=== PATIENT | male | born 1950 | race Caucasian/White ===

== ENCOUNTER → 2016-11-18 | Outpatient (CLI) | payer MEDICARE | END | disposition home or self-care (01) | LOC: GMAJ 15:37 | PROVIDERS: ATTEND Family Medicine | DX: Z12.5 Encounter for screening for malignant neoplasm of prostate (principal); E03.9 Hypothyroidism, unspecified; Z79.899 Other long term (current) drug therapy | CPT/HCPCS: 80164; 84443; G0103 ==

== ENCOUNTER → 2017-04-24 | Outpatient (CLI) | payer MEDICARE | END | disposition home or self-care (01) | LOC: GMAJ 10:20 | PROVIDERS: ATTEND Family Medicine | DX: Z79.899 Other long term (current) drug therapy (principal) ==

== ENCOUNTER → 2017-10-05 | Outpatient (CLI) | payer MEDICARE | END | disposition home or self-care (01) | LOC: GMAJ 10:52 | PROVIDERS: ATTEND Family Medicine | DX: Z79.899 Other long term (current) drug therapy (principal); E03.9 Hypothyroidism, unspecified ==

== ENCOUNTER → 2017-10-28 | Outpatient (CLI) | payer MEDICARE | LOC: GMAJS 15:39 | PROVIDERS: ATTEND Physician Assistant | DX: R10.84 Generalized abdominal pain (principal) ==

== ENCOUNTER → 2018-01-11 | Outpatient (CLI) | payer MEDICARE | LOC: GMAJ 13:49 | PROVIDERS: ATTEND Family Medicine | DX: E03.9 Hypothyroidism, unspecified (principal) ==

== ENCOUNTER → 2018-02-26 | Outpatient (CLI) | payer MEDICARE | LOC: LAB.O 13:01 | PROVIDERS: ATTEND Psychiatry & Neurology Psychiatry | DX: F31.12 Bipolar disorder, current episode manic without psychotic features, moderate (principal); Z79.899 Other long term (current) drug therapy ==

== ENCOUNTER → 2018-03-16 | Outpatient (CLI) | payer MEDICARE ==
--- NOTE | 2018-03-16 17:49 | US ---
EXAM DESCRIPTION: Carotid Duplex CLINICAL HISTORY: OCCLUSION AND STENOSIS OF BILATERAL CAROTID ARTERIES COMPARISON: None Available. TECHNIQUE: Carotid Doppler ultrasound FINDINGS: Right Submitted images show no significant stenosis in the common carotid, internal carotid or external carotid arteries. Mild calcified plaque at the right carotid bulb. Transverse image shows 41% area narrowing of the right carotid bulb. The following flow velocities were obtained: Common carotid artery peak systolic flow velocity measures 74 centimeters per second. Internal carotid artery peak systolic flow velocity measures 80 centimeters per second. External carotid artery peak systolic flow velocity measures 106 centimeters per second. Flow in the right vertebral artery is antegrade. The right internal carotid to common carotid peak systolic flow velocity ratio equals 1.1 which is normal. Left Submitted images show normal caliber of the left common carotid, internal carotid and external carotid arteries with no significant stenosis. Mild arteriosclerotic plaque is seen in the left carotid bulb. Mildly elevated flow velocity in the proximal left external carotid artery. 24% area stenosis measured at the left carotid bulb. The following flow velocities were obtained: Common carotid artery peak systolic flow velocity measures 94 centimeters per second. Internal carotid artery peak systolic flow velocity measures 100 centimeters per second. External carotid artery peak systolic flow velocity measures 128 centimeters per second. This is mildly elevated and may indicate mild origin stenosis. Flow in the left vertebral artery is antegrade. The left internal carotid to common carotid peak systolic flow velocity ratio of 1.1 is normal. IMPRESSION: Mildly elevated flow velocity in the proximal left external carotid artery. No hemodynamically significant stenosis is identified in the right or left common carotid or internal carotid arteries. Antegrade flow in the vertebral arteries. Electronically signed by: Guy Grewal MD 03/16/2018 5:48 PM CDT
== END ==
LOC: US 14:32
PROVIDERS: ATTEND Family Medicine
DX: I65.23 Occlusion and stenosis of bilateral carotid arteries (principal)

== ENCOUNTER 2018-04-12 03:06 | Emergency (ER) | payer MEDICARE ==
--- NOTE | 2018-04-12 04:22 | CT ---
CT head without contrast on 04/12/2018 CLINICAL INDICATION: Weakness, falling TECHNIQUE: Multiple axial images are obtained throughout the head without the administration of contrast. This exam was performed according to our departmental dose-optimization program, which includes automated exposure control, adjustment of the mA and/or kV according to patient size and/or use of iterative reconstruction technique. Total DLP is 859.97 mGy*cm. COMPARISON: None FINDINGS: There is mild generalized cerebral atrophy. There are small incidental bilateral choroidal fissure cysts noted. There is no hydrocephalus. There is no CT evidence of acute infarct. There is no hemorrhage. There are no abnormal extra-axial fluid collections. There is no mass, mass effect or midline shift. No bony abnormality is noted. IMPRESSION: Atrophy with no acute intracranial abnormality. Electronically signed by: Filemon Castellanos 04/12/2018 4:21 AM CDT
[2018-04-12] MEDS: SODIUM CHLORIDE 0.9% 1000ML 1,000 ML IVS ONE (05:24)
--- NOTE | 2018-04-12 06:22 | RAD ---
EXAM DESCRIPTION: Single view of the chest CLINICAL HISTORY: syncope COMPARISON: 01/06/2012 FINDINGS: Single frontal view of the chest. The cardiomediastinal silhouette has normal size and contour. No consolidation, pneumothorax, or pleural effusion. 0.8 cm nodular opacity in the right lung base. Osseous structures are stable. Leads overlie the chest. Upper abdominal soft tissues are unremarkable. IMPRESSION: 1. No acute pulmonary process identified. 2. There is a 0.8 cm nodular opacity in the right lung. Repeat chest radiograph with nipple markers recommended. If nodule does not represent a nipple shadows then CT of the chest would be recommended. Electronically signed by: Franklin Griffin 04/12/2018 6:21 AM CDT
--- NOTE | 2018-04-12 06:36 | ED.PDOC ---
History of Present Illness - General Chief Complaint: General Stated Complaint: weak and falling often Time Seen by Provider: 04/12/18 04:54 Source: patient, family Exam Limitations: no limitations - History of Present Illness Initial Comments: Patient presents after having 3 falls in the last 3 days. 3 days ago he was camping he fell into the river. Today he fell twice from standing. He did not lose consciousness. He did not experience chest pain, light-headedness, nor dizziness before or after falling. Denies previous episodes. He has not felt ataxic nor lethargic. No weakness or numbness in any extremity. No other complaints. Timing/Duration: intermittent Severity: mild Improving Factors: nothing Worsening Factors: nothing Associated Symptoms: denies symptoms Allergies/Adverse Reactions: Allergies Tetanus Toxoid Allergy (Verified 04/12/18 03:26) Home Medications: Ambulatory Orders Atorvastatin Calcium [Atorvastatin Calcium] 04/12/18 Divalproex Sodium [Divalproex Sodium Dr] 04/12/18 Fenofibrate [Fenofibrate] 04/12/18 Glimepiride 2 mg PO 04/12/18 Levothyroxine Sodium [Synthroid] 04/12/18 Losartan Potassium [Losartan Potassium] 04/12/18 Metformin HCl [Metformin HCl] 04/12/18 Metoprolol Succinate [Metoprolol Succinate ER] 04/12/18 Niacin [Niacin ER] 500 mg PO 04/12/18 [place]-3 Fatty Acids [Fish Oil 1200 mg] 04/12/18 Venlafaxine HCl [Venlafaxine HCl ER] 04/12/18 Review of Systems - Review of Systems Constitutional: States: no symptoms reported EENTM: States: no symptoms reported Respiratory: States: no symptoms reported Cardiology: States: no symptoms reported Gastrointestinal/Abdominal: States: no symptoms reported Genitourinary: States: no symptoms reported Musculoskeletal: States: no symptoms reported Skin: States: no symptoms reported Neurological: States: see HPI Endocrine: States: no symptoms reported Hematologic/Lymphatic: States: no symptoms reported Past Medical History (General) - Patient Medical History Hx Hypertension: Yes Hx Thyroid Disease: Yes Hx Diabetes: Yes - Vaccination History Hx Influenza Vaccination: Yes - Triage Comment ED Triage Comment: States fell into river while fishing Thursday evening, and then fell agian Thursday at home and unable to get up, due to weakness. 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, no motor/sensory deficits, alert, normal mood/affect, oriented x 3 Skin Exam: normal color Lymphatic: no adenopathy Progress - Progress Progress: 04/12/18 06:37 Laboratory Tests 04/12/18 04/12/18 04/12/18 03:45 03:45 03:45 WBC 7.8 RBC 4.25 L Hgb 12.1 L Hct 37.3 L MCV 87.8 MCH 28.4 MCHC 32.4 L RDW 16.0 H Plt Count 229 MPV 9.0 Absolute Neuts (auto) 5.40 Absolute Lymphs (auto) 1.20 Absolute Monos (auto) 1.00 H Absolute Eos (auto) 0.00 Absolute Basos (auto) 0.10 Neutrophils % 69.6 Lymphocytes % 15.4 L Monocytes % 13.5 H Eosinophils % 0.5 L Basophils % 1.0 PT 10.6 INR 1.06 PTT (SP) 25.4 D-Dimer, Quantitative Sodium 137 Potassium 4.7 Chloride 106 Carbon Dioxide 22 Anion Gap 13.7 BUN 24 H Creatinine 0.94 BUN/Creatinine Ratio 25.5 H Random Glucose 108 H Serum Osmolality 278.4 Calcium 9.8 Total Bilirubin 0.5 AST 30 ALT 24 Alkaline Phosphatase 39 L Ammonia Creatine Kinase CK-MB (CK-2) CK-MB (CK-2) % Troponin I Serum Total Protein 7.0 Albumin 3.4 Globulin 3.6 H Albumin/Globulin Ratio 0.9 L TSH Thyroxine (T4) Urine Color Urine Appearance Urine pH Ur Specific Tripp Urine Protein Urine Glucose (UA) Urine Ketones Urine Blood Urine Nitrite Urine Bilirubin Urine Urobilinogen Ur Leukocyte Esterase Urine RBC Urine WBC Ur Epithelial Cells Urine Bacteria Salicylates Acetaminophen Valproic Acid 04/12/18 04/12/18 04/12/18 05:02 05:07 05:08 WBC RBC Hgb Hct MCV MCH MCHC RDW Plt Count MPV Absolute Neuts (auto) Absolute Lymphs (auto) Absolute Monos (auto) Absolute Eos (auto) Absolute Basos (auto) Neutrophils % Lymphocytes % Monocytes % Eosinophils % Basophils % PT INR PTT (SP) D-Dimer, Quantitative Sodium Potassium Chloride Carbon Dioxide Anion Gap BUN Creatinine BUN/Creatinine Ratio Random Glucose Serum Osmolality Calcium Total Bilirubin AST ALT Alkaline Phosphatase Ammonia Creatine Kinase CK-MB (CK-2) CK-MB (CK-2) % Troponin I Serum Total Protein Albumin Globulin Albumin/Globulin Ratio TSH 4.00 Thyroxine (T4) 8.48 Urine Color Urine Appearance Urine pH Ur Specific Tripp Urine Protein Urine Glucose (UA) Urine Ketones Urine Blood Urine Nitrite Urine Bilirubin Urine Urobilinogen Ur Leukocyte Esterase Urine RBC Urine WBC Ur Epithelial Cells Urine Bacteria Salicylates < 4.0 Acetaminophen < 10.0 L Valproic Acid 99.3 04/12/18 04/12/18 04/12/18 05:11 05:12 05:20 WBC RBC Hgb Hct MCV MCH MCHC RDW Plt Count MPV Absolute Neuts (auto) Absolute Lymphs (auto) Absolute Monos (auto) Absolute Eos (auto) Absolute Basos (auto) Neutrophils % Lymphocytes % Monocytes % Eosinophils % Basophils % PT INR PTT (SP) D-Dimer, Quantitative 0.37 Sodium Potassium Chloride Carbon Dioxide Anion Gap BUN Creatinine BUN/Creatinine Ratio Random Glucose Serum Osmolality Calcium Total Bilirubin AST ALT Alkaline Phosphatase Ammonia 25 Creatine Kinase 229 H* CK-MB (CK-2) 3.9 CK-MB (CK-2) % Not Reportable Troponin I < 0.02 Serum Total Protein Albumin Globulin Albumin/Globulin Ratio TSH Thyroxine (T4) Urine Color Urine Appearance Urine pH Ur Specific Tripp Urine Protein Urine Glucose (UA) Urine Ketones Urine Blood Urine Nitrite Urine Bilirubin Urine Urobilinogen Ur Leukocyte Esterase Urine RBC Urine WBC Ur Epithelial Cells Urine Bacteria Salicylates Acetaminophen Valproic Acid 04/12/18 05:35 WBC RBC Hgb Hct MCV MCH MCHC RDW Plt Count MPV Absolute Neuts (auto) Absolute Lymphs (auto) Absolute Monos (auto) Absolute Eos (auto) Absolute Basos (auto) Neutrophils % Lymphocytes % Monocytes % Eosinophils % Basophils % PT INR PTT (SP) D-Dimer, Quantitative Sodium Potassium Chloride Carbon Dioxide Anion Gap BUN Creatinine BUN/Creatinine Ratio Random Glucose Serum Osmolality Calcium Total Bilirubin AST ALT Alkaline Phosphatase Ammonia Creatine Kinase CK-MB (CK-2) CK-MB (CK-2) % Troponin I Serum Total Protein Albumin Globulin Albumin/Globulin Ratio TSH Thyroxine (T4) Urine Color Dk yellow Urine Appearance Clear Urine pH 6.0 Ur Specific Tripp 1.015 Urine Protein Negative Urine Glucose (UA) Negative Urine Ketones Trace Urine Blood Negative Urine Nitrite Negative Urine Bilirubin Negative Urine Urobilinogen 1.0 Ur Leukocyte Esterase Negative Urine RBC 0-1 Urine WBC 0-1 Ur Epithelial Cells 1-3 Urine Bacteria 0 Salicylates [address]etaminophen Valpro[address] Acid CT head showed no acute disease. There is no laboratory evidence for the patient's symptoms except mild dehydration. The Valproic acid level is 99 which is the very high end of normal. Perhaps hydration state may have pushed the patient into a temporary toxic level. Will have the patient follow up with neurology for further evaluation and workup. E.R. warnings given. Questions were elicited and answered. The patient and his voiced understanding and agreement with the plan. Departure - Departure Clinical Impression: Fall Disposition: Discharge to Home or Self Care Condition: Good Departure Forms: ED Discharge - Pt. Copy, Patient Portal Self Enrollment Diet: resume usual diet Activity: increase activity as tolerated Referrals: Roland Jones MD [Primary Care Provider] - 1-2 Weeks Home Medications: Ambulatory Orders Atorvastatin Calcium [Atorvastatin Calcium] 04/12/18 Divalproex Sodium [Divalproex Sodium Dr] 04/12/18 Fenofibrate [Fenofibrate] 04/12/18 Glimepiride 2 mg PO 04/12/18 Levothyroxine Sodium [Synthroid] 04/12/18 Losartan Potassium [Losartan Potassium] 04/12/18 Metformin HCl [Metformin HCl] 04/12/18 Metoprolol Succinate [Metoprolol Succinate ER] 04/12/18 Niacin [Niacin ER] 500 mg PO 04/12/18 [place]-3 Fatty Acids [Fish Oil 1200 mg] 04/12/18 Venlafaxine HCl [Venlafaxine HCl ER] 04/12/18 Additional Instructions: See your neurologist or primary doctor regarding your Depakote doses as well as possible cardiac monitoring. Return to the E.R. if symptoms continue or worsen.
[2018-04-12 07:00] VITALS: BP 155/83; TEMP 99.1; O2SAT 97
== END 2018-04-12 07:00 | disposition home or self-care (01) ==
LOC: ER 03:06
DX: R53.1 Weakness (principal); Z91.81 History of falling; R79.89 Other specified abnormal findings of blood chemistry; I10 Essential (primary) hypertension; E11.9 Type 2 diabetes mellitus without complications; E07.9 Disorder of thyroid, unspecified; E86.0 Dehydration; Z79.84 Long term (current) use of oral hypoglycemic drugs
CPT/HCPCS: 36415; 70450; 71045; 80053; 80164; 80329; 81001; 82140; 82550; 82553; 84436; 84443; 84484; 85025; 85379; 85610; 85730; 93005; J7030

== ENCOUNTER 2018-04-15 11:30 | Inpatient (IN) | payer MEDICARE ==
--- NOTE | 2018-04-15 11:41 | HP ---
SUPERVISING PHYSICIAN: Roland Jones M.D. CHIEF COMPLAINT: Near syncope and altered mental status. HISTORY OF PRESENT ILLNESS: This is a 68 year-old patient of Dr. Roland Jones who was in the Emergency Room on the for some dizziness, imbalance and altered mental status. He is normally very active and in the last 2 weeks he has had some problems with altered mental status. His has said that he has become very dependent on help from her and her family and he is unable to do most of his activities of daily living. He has had 3 falls prior to his admission to the Emergency Room and has had several near syncopal episodes since then. He has had weakness as well as this altered mental status. He does have a history of bipolar disorder and has been on Depakote for quite some time. He is very compliant with his medications. He also is a diabetic and take Glimepiride as well as has a history of hypertension and hypothyroidism. Today he was in his primary care physician, ' office. It is reported that his mental status was changed from his normal and he had had a full workup in the Emergency Room on the , but due to his mental status as well as his multiple episodes of syncope or near syncope as well as falls, that he be admitted to the hospital for a full workup. He was directly admitted from ' office. Once the patient was here at the hospital a full workup of labs was done as well as an MRI of the brain. 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 No hemorrhage or diffusion restriction. No mass effect. No shift. No cerebral edema. 2) Noncontrast MRI diffusion study showing no evidence of acute or subacute infarction. 3) Moderate inflammatory process of the left leg mastoid air cells. Chronic sinusitis paranasal air cells. A chest x-ray was also obtained and the two view chest shows a negative exam with no suspicious lung nodule or other intrathoracic abnormality. His lab was done and showed a normal white count of 8.1 with hemoglobin 12.6 and hematocrit 38.6. PT and PTT were within normal limits. Chemistry showed sodium 135, potassium 4, chloride 102, carbon dioxide 23, BUN 23, creatinine 0.97. Initial blood sugar was 47. He also had an ammonia of 47 that was up significantly from his ammonia from the 15th which was 25. He also had a valproic acid of 116.8 which was also quite elevated from his 99.3 on the 15th. UA was essentially within normal limits. Urine culture is pending as well as blood culture pending. The patient is admitted for valproic acid toxicity as well as altered mental status. PAST MEDICAL HISTORY: 1. Acquired hypothyroidism. 2. Bipolar disorder. 3. Cerebrovascular accident. 4. Diabetes mellitus type 2. 5. Hypertension. 6. Hyperlipidemia. 7. Osteoarthritis. 8. Carotid artery stenosis. 9. Gastroesophageal reflux disease. PAST SURGICAL HISTORY: 1. Arthroscopy of the left knee. 2. Left inguinal hernia repair 3. Right rotator cuff repair. CURRENT MEDICATIONS: ALLERGIES: TETANUS TOXOID. FAMILY HISTORY: Positive for ALS and hypertension. SOCIAL HISTORY: He is . He has 4 children. He quit smoking many years ago and he does not drink any alcoholic beverages or use any illicit drugs. REVIEW OF SYSTEMS: Unable to obtain due to the patient's mental status. PHYSICAL EXAMINATION: VITAL SIGNS: Temperature 98.3, heart rate 71, blood pressure 129/74, respiratory rate 18, O2 sat 95% on room air. GENERAL: This is a 68 year-old male patient who is sitting up in his hospital bed. He is in no acute distress but he is very lethargic. HEENT: Normocephalic and atraumatic. Pupils are equal and reactive. Oropharynx is clear. NECK: Supple without mass. RESPIRATORY: Essentially clear to auscultation bilaterally. CHEST: There is equal rise and fall of the chest with inspiration and expiration. CARDIOVASCULAR: Regular rate and rhythm. GASTROINTESTINAL: Abdomen is soft, nondistended, non-tender. Bowel sounds are positive. EXTREMITIES: No cyanosis, clubbing or edema. NEUROLOGIC: He is awake. He is somewhat lethargic. He has a very difficult time answering questions appropriately. SKIN: Warm and dry. LABORATORY: Labs and films are as per the history of present illness. ASSESSMENT: 1. Valproic acid toxicity. 2. Altered mental status most likely secondary to #1. 3. Hypoglycemic event, may be exacerbated by the valproic acid toxicity as well as he is on Glimepiride. 4. Hyperammonemia also most likely secondary to the elevated valproic acid level. 5. Diabetes mellitus type 2. 6. Hypertension. 7. Bipolar disorder. PLAN: We will admit the patient to the hospital. Will have every 4 hours neuro checks and he will have telemetry. In the morning I will do a CBC, CMP, magnesium, ammonia and a valproic acid level. I will also do a valproic acid and ammonia level at 9:00 PM tonight. I will also do Accu-Cheks a.c. and h.s. , and I will do an extra midnight and 3:00 AM Accu-Chek due to his hypoglycemic event on admission. Will put him on a regular diet. I have given him 550 grams of activated charcoal for GI decontamination. I have ordered Ativan for any withdrawal or seizures since stopping the Depakote. He will need a followup with Dr. Kahn, psychiatrist, as well as . Will closely follow him and ask recommendations on when we restart his Depakote from . Will monitor him closely and follow as needed. #[id number] [facility]
[2018-04-15] MEDS ORDERED: ONDANSETRON INJ 4 MG/2 ML VIAL IV PRN (11:51)
--- NOTE | 2018-04-15 12:50 | RAD ---
EXAM DESCRIPTION: Chest,1 View CLINICAL HISTORY: ams COMPARISON: Portable chest 04/12/2018. TECHNIQUE: AP portable taken at 1219 hours, upright position. FINDINGS: Moderate lung expansion. No acute infiltrate or pleural effusion. Nodular densities seen in the lower right lung on the prior study may represent a nipple shadow. No pneumothorax or pulmonary vascularity increased. Heart size unremarkable. No acute bony thoracic abnormalities. IMPRESSION: No radiographic evidence of acute cardiopulmonary disease. Consider 2 view chest x-ray to follow up nodular density best seen in inferior right lung on 04/12/2018. Electronically signed by: Kaiser Cifuentes MD 04/15/2018 12:49 PM CDT
[2018-04-15] MEDS: IV SET AND CAP CHANGE INJ INJ SCH (13:04)
--- NOTE | 2018-04-15 13:14 | MRI ---
EXAM DESCRIPTION: Brain w/o Contrast: MRI. CLINICAL HISTORY: AMS COMPARISON: Chest x-ray on the same visit. TECHNIQUE: Multiplanar, high-field MRI unit, multiple diffusion sequences, multiple conventional sequences without contrast. FINDINGS: Focal region of hypointense FLAIR signal and hyperintense T2-weighted ADC signal inferior to the posterior limb of the right internal capsule on FLAIR axial sequence 11 and T2 axial sequence 11. No evidence of hemorrhage or diffusion restriction. Otherwise unremarkable FLAIR and T2-weighted signal In the periventricular white matter and donahue-white matter junctions of the cerebral hemispheres. . No hemorrhage, no cerebral edema, no mass-effect. Normal signal in the bilateral basal ganglia. Normal signal in the brainstem and cerebellar hemispheres. No hemorrhage, no cerebral edema, no mass-effect. Concordance of the diffusion and non-diffusion sequences with no diffusion restriction. Cortical sulci, ventricles, and other CSF spaces, and the subdural spaces are unremarkable. No effacement or displacement. No midline shift. No extra-axial hemorrhage. Normal flow signal void in the major vessels of the [place], and the venous sinuses. IACs are symmetric bilaterally. Multiple left mastoid air cells containing fluid or edema. No mass effect in the bilateral cerebellopontine angles. Pituitary gland occupies the entire sella. Base of the cerebellar tonsils is above the foramen magnum. Mucoperiosteal thickening in the bilateral ethmoid air cells with rudimentary frontal sinuses no air-fluid levels. The bony calvarium is intact. IMPRESSION: 1. Old focal ischemic lesion or silent infarct inferior to the posterior limb of the right internal capsule. No hemorrhage or diffusion restriction. No mass effect, no shift, and no cerebral edema. 2. Noncontrast MRI diffusion study showing no evidence of acute or subacute infarction. 3. Moderate inflammatory process in the left mastoid air cells. Chronic sinusitis paranasal air cells. Electronically signed by: Kaiser Cifuentes MD 04/15/2018 1:13 PM CDT
[2018-04-15] MEDS ORDERED: GLUCAGON INJ 1 MG VIAL SUBCU PRN (13:54)
[2018-04-15] MEDS ORDERED: DEXTROSE 50% 25 GM/50 ML SYG IV PRN (13:54)
[2018-04-15] MEDS ORDERED: ACTIVATED CHARCOAL PELLETS 25 GM BTTL PO ONE (15:15)
[2018-04-15] MEDS ORDERED: SORBITOL 70 % 30 ML UD PO ONE ×2 (15:15→16:30)
--- NOTE | 2018-04-15 15:19 | RAD ---
EXAM DESCRIPTION: Chest,2 Views CLINICAL HISTORY: nodule COMPARISON: April 15, 2018 at 12:19 PM, 04/12/2018 FINDINGS: The cardiomediastinal silhouette is unremarkable. There is no airspace consolidation or pleural effusion. Nipple markers are present, and no lung nodules seen on today's exam. The nodule projecting over the right lung base on the April 12 exam likely represents a nipple shadow. There is no pneumothorax or acute fracture. IMPRESSION: Negative exam. No suspicious lung nodule or other intrathoracic abnormality. Electronically signed by: Stefano Meneses MD 04/15/2018 3:17 PM CDT
[2018-04-15] MEDS: DEX 5% W/NACL 0.45% 1000ML 1,000 ML IVS PRN (16:35)
[2018-04-15] MEDS: INSULIN LISPRO 100 UNITS/ML PEN SUBCU SCH ×2 (16:54→21:57)
[2018-04-15] MEDS ORDERED: NON-FORMULARY MEDICATION 1 EA MIS (Metformin Hcl [Metformin Hcl] 1,000 MG) PO SCH (21:00)
[2018-04-15] MEDS ORDERED: metFORMIN HCL 500 MG TAB ONE (21:55)
[2018-04-15] MEDS: SODIUM CHLORIDE 0.9% (FLUSH) 10 ML SYG IV SCH (21:57)
[2018-04-16] MEDS: DEX 5% W/NACL 0.45% 1000ML 1,000 ML IVS PRN ×3 (01:39→17:39)
[2018-04-16] MEDS: INSULIN LISPRO 100 UNITS/ML PEN SUBCU SCH ×4 (07:26→21:00)
[2018-04-16] MEDS: METOPROLOL SUCCINATE XL 100 MG TAB PO SCH (09:33)
[2018-04-16] MEDS: LOSARTAN POTASSIUM 100 MG TAB PO SCH (09:33)
[2018-04-16] MEDS: metFORMIN HCL 500 MG TAB PO SCH ×2 (09:33→17:08)
[2018-04-16] MEDS: FENOFIBRATE 160 MG PO SCH (09:33)
[2018-04-16] MEDS: LEVOTHYROXINE SODIUM 0.075 MG TAB PO SCH (09:33)
[2018-04-16] MEDS: NON-FORMULARY MEDICATION 1 EA MIS (Solifenacin Succinate [Vesicare] 10 MG) PO SCH (09:33)
[2018-04-16] MEDS: SODIUM CHLORIDE 0.9% (FLUSH) 10 ML SYG IV SCH ×2 (09:34→21:00)
[2018-04-16] MEDS: VENLAFAXINE HCL 300 MG PO SCH (09:34)
--- NOTE | 2018-04-16 18:13 | PN ---
DATE: 04/16/18 SUPERVISING PHYSICIAN: Roland Jones M.D. SUBJECTIVE: The patient this morning is still a little weak physically but is very sleepy. He is able to be awakened but easily falls back to sleep. In fact , if you even talk to him he falls asleep. He has not had any fevers overnight and he has been off his Depakote now for 24 hours. His notes that he is pretty much at his baseline presentation. We are just waiting on Physical Therapy for evaluation. I did talk to Dr. Kahn in regards to the Depakote level and we are going to decrease those levels. OBJECTIVE: VITAL SIGNS: Temperature 98.5, pulse 73, blood pressure 157/88, respirations 20, satting 96% on room air. Weight is 75.7 kg. GENERAL: The patient is somewhat lethargic but easily arousable, but falls asleep even while talking to him. CHEST: Lungs are clear to auscultation bilaterally without any rhonchi, wheezing or rales. HEART: Regular rate and rhythm without appreciable murmurs, gallops, or rubs. ABDOMEN: Soft, non-tender. Positive bowel sounds. EXTREMITIES: Without any clubbing, cyanosis or edema. NEUROLOGIC: He is lethargic but answers questions easily and is arousable easily. He is oriented times three. Cranial nerves II-XII grossly intact. Facial features were symmetrical. Extraocular movements are within normal limits. He does answer questions appropriately but has a very flat affect. LABORATORY: CBC shows a normal white count at 7,600 with hemoglobin 12.5, hematocrit 30.8, platelet count 269,000. Differential shows to be without a left shift. Chemistries show just a mildly decreased sodium at 134, potassium 4.3, BUN 17, creatinine 1.0. Blood sugar is between 152 and 197. Calcium is normal at 9.7, magnesium normal at 1.9. Ammonia level this morning was 20. Liver functions are all within normal limits. Valproic acid this morning is at 26.2. MICROBIOLOGY: Urine culture is pending. Blood cultures are negative at 24 hours. RADIOLOGY: No additional radiographic studies were available for review. ASSESSMENT: 1. 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 2. Decreased mental status possibly secondary to #1 improving. 3. Diabetes mellitus type 2 showing to be stable. 4. Hypertension, monitoring. 5. Bipolar disorder, manic depressive. PLAN: The patient continues to be lethargic but remains orientated. I will further assess the patient neurologically for an additional 24 and await a Physical Therapy consultation. I did talk to Dr. Kahn, his psychiatrist, who recommended that we could decrease the valproic acid to 1,000 mg b.i.d. and monitor levels closely. Will await a Physical Therapy consult. Will anticipate hopefully discharging tomorrow and to closely followup with his psychiatrist, Dr. Kahn, as well as . Until discharge will continue to monitor and treat as needed. #[id number] [facility]
[2018-04-16] MEDS ORDERED: DIVALPROEX SODIUM 250 MG TAB PO SCH (21:00)
[2018-04-16] MEDS: ATORVASTATIN 20 MG TAB PO SCH (21:00)
[2018-04-17] MEDS: DEX 5% W/NACL 0.45% 1000ML 1,000 ML IVS PRN (01:32)
[2018-04-17] MEDS ORDERED: IBUPROFEN 400 MG TAB PO PRN (01:43)
[2018-04-17] MEDS ORDERED: ACETAMINOPHEN 325 MG TAB PO PRN (01:44)
[2018-04-17] MEDS: INSULIN LISPRO 100 UNITS/ML PEN SUBCU SCH ×4 (07:39→21:00)
[2018-04-17] MEDS: metFORMIN HCL 500 MG TAB PO SCH ×2 (07:39→17:31)
[2018-04-17] MEDS ORDERED: LACTULOSE SYRUP 20 GM/30 ML UD PO ONE (08:29)
[2018-04-17] MEDS: VENLAFAXINE HCL 300 MG PO SCH (08:36)
[2018-04-17] MEDS: FENOFIBRATE 160 MG PO SCH (08:37)
[2018-04-17] MEDS: NON-FORMULARY MEDICATION 1 EA MIS (Solifenacin Succinate [Vesicare] 10 MG) PO SCH (08:37)
[2018-04-17] MEDS: LEVOTHYROXINE SODIUM 0.075 MG TAB PO SCH (08:38)
[2018-04-17] MEDS: METOPROLOL SUCCINATE XL 100 MG TAB PO SCH (08:38)
[2018-04-17] MEDS: LOSARTAN POTASSIUM 100 MG TAB PO SCH (08:38)
[2018-04-17] MEDS: SODIUM CHLORIDE 0.9% (FLUSH) 10 ML SYG IV SCH ×2 (08:39→20:20)
--- NOTE | 2018-04-17 17:47 | PN ---
DATE: 04/17/18 SUPERVISING PHYSICIAN: Roland Jones M.D. SUBJECTIVE: The patient is much more alert this morning but he continues to be significantly weak in regards to his lower extremity strength. He did run a fever last night of T max of 101.0, but responded to Tylenol. This morning he is without any complaints of headaches or neck pain. OBJECTIVE: VITAL SIGNS: T max 101.0, pulse 69, blood pressure 162/74, respirations 16, satting 97% on room air. GENERAL: The patient this morning is much more interactive. He is alert and oriented. CHEST: Lungs are clear to auscultation except for some very faint rhonchi heard towards the bases bilaterally. HEART: Regular rate and rhythm. ABDOMEN: Soft, non-tender. Positive bowel sounds. EXTREMITIES: Without any clubbing, cyanosis or edema. NEUROLOGIC: He is alert this morning and oriented. Cranial nerves II-XII remain grossly intact. Facial features are symmetrical. Extraocular movements are within normal limits. There is no notable neurological deficits, focalized or lateralizing. LABORATORY: White count 7,400, hemoglobin 11.3, hematocrit 34.9, platelet count 246,000. Differential shows to be without a left shift. Chemistries: Sodium this morning is a little low at 132, potassium 3.9, BUN 11, creatinine 0.77. Liver functions are showing to be within normal limits. His ammonia level was elevated at 50. Lipase remains slightly elevated at 63. Depakote level this morning was 33.2. MICROBIOLOGY: Urine cultures are pending. Blood cultures remain negative at 48 hours. RADIOLOGY: No radiographic studies this morning. ASSESSMENT: 1. Valproate-related hyperammonemic encephalopathy improving after stopping and decreasing Depakote level reoccurring after reinitiating Depakote administration. 2. Decreased mental status, although showing some slight improvement felt to be secondary to #1. 3. Diabetes mellitus type 2 showing to be stable. 4. Hypertension, monitoring. 5. Bipolar disorder, manic depressive. Management of his Depakote will be to Depakote levels once again to 500 b.i.d. 6. Electrolyte imbalance with hyponatremia probably secondary to IV administration and contributing to some of his ongoing weakness. 7. Fever felt to be probably due to some atelectasis with the patient being inactive and in bed, monitoring and initiation of incentive spirometry to prevent complications. PLAN: This morning, given he had an increase in ammonia again, will go ahead and hold his Depakote as well as administer 1 singe dose 30 mL of Lactulose and recheck his labs later this afternoon, including CRP and ESR along with ammonia. He continues to work with Physical Therapy. I did talk to the this morning and she is still concerned that he is weak enough to the point where she cannot physically handle him or help him or assist him in any form at this point, and is concerned that he may fall at home. Will also saline lock him today, hopefully with better maintenance of his fluids and correction of his sodium levels and leveling off of the ammonia and encouragement of ambulation, he will show some good improvement and be able to discharge tomorrow. I have also ordered incentive spirometry to help with any atelectasis to prevent any further problems such as fevers. Will closely monitor him and treat as needed until discharge, and again hopefully be able to discharge tomorrow. #[id number] [facility]ALSuk[facility]
--- NOTE | 2018-04-17 19:12 | CT ---
EXAM DESCRIPTION: Abdomen/Pelvis w/Contrast (accession [id number]) CLINICAL HISTORY: 68 years Male elevated lipase and pneumonia, fever, nausea and vomiting COMPARISON: None. TECHNIQUE: Contiguous axial images obtained through the abdomen and pelvis following IV contrast. Reformatted images obtained. This exam was performed according to our department optimization program which includes automated exposure control, adjustment of the mA and/or kv according to patient size and/or use of iterative reconstruction technique. FINDINGS: Areas of alveolar infiltrate in the right middle lobe and both lower lobes worse on the left. Findings suggest pneumonia. Fatty infiltration of the liver. The spleen and pancreas appear unremarkable. No adrenal masses. No evidence of hydronephrosis. There is perinephric stranding bilaterally which is nonspecific finding. Scattered small nonobstructing stones. The gallbladder is visualized. No aneurysmal dilatation of the aorta. No bowel obstruction. The appendix is unremarkable. No significant free fluid noted. IMPRESSION: Mild perinephric stranding bilaterally which is a nonspecific finding Areas of alveolar infiltrate in the lung bases and right middle lobe concerning for pneumonia worse in the left lower lobe Nonobstructing renal calculi PROCEDURE: CT brain without contrast CLINICAL HISTORY: 68 years Male Acute Mental Status Change COMPARISON: 04/12/2019. TECHNIQUE: Contiguous axial CT images obtained through the brain without IV contrast. This exam was performed according to our department optimization program which includes automated exposure control, adjustment of the mA and/or kv according to patient size and/or use of iterative reconstruction technique. FINDINGS: The ventricles and sulci are prominent consistent with atrophic changes. No mass lesions. Areas of previous lacunar infarct in the thalami and basal ganglia bilaterally. No acute hemorrhage. Atherosclerotic calcifications. No fluid or significant mucosal thickening in the visualized paranasal sinuses. No depressed calvarial fractures. IMPRESSION: No acute intracranial abnormality is identified. Electronically signed by: Juliette Acharya MD 04/17/2018 7:11 PM CDT
[2018-04-17] MEDS ORDERED: AZITHROMYCIN IV 500 MG in SODIUM CHLORIDE 0.9% 250ML 250 ML IVPB SCH (20:00)
[2018-04-17] MEDS: LEVALBUTEROL NEBS 1.25 MG/3 ML VIAL NEB SCH (20:00)
[2018-04-17] MEDS ORDERED: SODIUM CHLORIDE 0.9% 250ML 250 ML ONE (20:04)
[2018-04-17] MEDS ORDERED: SODIUM CHL 0.9% 100ML MINI-BAG 100 ML IVPB ONE (20:04)
[2018-04-17] MEDS ORDERED: AMPICILLIN & SULBACTAM SODIUM 3 GM VIAL ONE (20:05)
[2018-04-17] MEDS ORDERED: AZITHROMYCIN IV 500 MG VIAL IVPB ONE (20:05)
[2018-04-17] MEDS: AMPICILLIN & SULBACTAM SODIUM 3 GM in SODIUM CHL 0.9% 100ML MINI-BAG 100 ML IVPB SCH (20:20)
[2018-04-17] MEDS: guaiFENesin ER TAB 600 MG TAB PO SCH (20:26)
[2018-04-17] MEDS: ATORVASTATIN 20 MG TAB PO SCH (20:27)
[2018-04-17] MEDS ORDERED: MAGNESIUM HYDROXIDE 30 ML UD PO ONE (20:44)
[2018-04-18] MEDS ORDERED: AMPICILLIN & SULBACTAM SODIUM 3 GM VIAL ONE ×4 (02:06→19:39)
[2018-04-18] MEDS ORDERED: SODIUM CHL 0.9% 100ML MINI-BAG 100 ML IVPB ONE ×4 (02:06→19:38)
[2018-04-18] MEDS: AMPICILLIN & SULBACTAM SODIUM 3 GM in SODIUM CHL 0.9% 100ML MINI-BAG 100 ML IVPB SCH ×4 (02:18→20:22)
--- NOTE | 2018-04-18 06:42 | RAD ---
EXAM: AP CHEST RADIOGRAPH CLINICAL INDICATION: Pneumonia. COMPARISON: Chest radiograph of April 15, 2018. FINDINGS: Cardiac size and pulmonary vasculature are normal. New bibasilar pulmonary consolidations. No pleural effusions or pneumothorax. Bones appear intact. IMPRESSION: New bibasilar pulmonary consolidations. Otherwise, normal chest radiograph. Electronically signed by: Fareed Gutierrez MD 04/18/2018 6:40 AM CDT
[2018-04-18] MEDS: metFORMIN HCL 500 MG TAB PO SCH ×2 (07:22→16:09)
[2018-04-18] MEDS: INSULIN LISPRO 100 UNITS/ML PEN SUBCU SCH ×4 (07:22→21:30)
[2018-04-18] MEDS: LEVALBUTEROL NEBS 1.25 MG/3 ML VIAL NEB SCH ×4 (08:51→23:30)
[2018-04-18] MEDS: LEVOTHYROXINE SODIUM 0.075 MG TAB PO SCH (08:58)
[2018-04-18] MEDS: METOPROLOL SUCCINATE XL 100 MG TAB PO SCH (08:58)
[2018-04-18] MEDS: DIVALPROEX SODIUM 250 MG TAB PO SCH ×2 (08:58→20:29)
[2018-04-18] MEDS: LOSARTAN POTASSIUM 100 MG TAB PO SCH (08:59)
[2018-04-18] MEDS: guaiFENesin ER TAB 600 MG TAB PO SCH ×2 (08:59→20:29)
[2018-04-18] MEDS: NON-FORMULARY MEDICATION 1 EA MIS (Solifenacin Succinate [Vesicare] 10 MG) PO SCH (09:00)
[2018-04-18] MEDS: SODIUM CHLORIDE 0.9% (FLUSH) 10 ML SYG IV SCH ×2 (09:01→20:21)
[2018-04-18] MEDS: VENLAFAXINE HCL 300 MG PO SCH (09:01)
[2018-04-18] MEDS: FENOFIBRATE 160 MG PO SCH (09:01)
--- NOTE | 2018-04-18 11:56 | PN ---
DATE: 04/18/18 SUPERVISING PHYSICIAN: Roland Jones M.D. SUBJECTIVE: Late yesterday afternoon the patient started having some episodes of nausea with some vomiting. He denied any actual abdominal pains. Given that he had just a slight bump in his lipase levels and was having some nausea and vomiting, I went ahead and did a CT of his abdomen. He was also reportedly having some acute mental status change, although not very noticeable. I went ahead to just followup with a CT of the head without contrast. He was afebrile and has been afebrile now for over 24 hours. OBJECTIVE: VITAL SIGNS: T max temperature 99.2, pulse 81, blood pressure 129/69 , respirations 18, satting 93% on room air. I's and O's are not well measured as he has had some voids that were not captured. He has had 1 bowel movement in the last 24 hours and his weight is 74.8 kg which is actually down from admission of 77.3. GENERAL: The patient again is resting. He easily falls asleep but is much more alert today than he was yesterday. He denies any abdominal pain. CHEST: Lungs were fairly clear to auscultation except for some continued rhonchi heard on the posterior left aspect of the left lung with just very faint rhonchi heard on the right. ABDOMEN: Soft, non-tender. Positive bowel sounds. EXTREMITIES: Without any clubbing, cyanosis or edema. NEUROLOGIC : He is alert and oriented times three. LABORATORY: White count remains within normal limits at 8,600, hemoglobin and hematocrit are stable at 11.1 and 33.8 respectively with platelet count 276, 000. Differential continues to be without a left shift. He did have an elevated ESR of 95 yesterday. His chemistries this morning show a persistent hyponatremia with sodium 132, otherwise all electrolytes were within normal limits. BUN 12, creatinine 0.85. Blood sugars ranged from 105 to 136, calcium 8.8. C reactive protein yesterday was 16.5. MICROBIOLOGY: Urine culture is pending. Blood culture is pending with no growth in 48 hours. RADIOLOGY: CT of the head/CT abdomen and pelvis yesterday without contrast shows mild perinephric stranding bilaterally which is a nonspecific finding. The gallbladder was visualized. No mention of abnormalities. Appendix was unremarkable. No significant free fluid. Of note was alveolar infiltrate in the right middle lobe and both lower lobes, worse on the left, suggesting pneumonia and also there is note of fatty infiltration of the liver. The spleen and pancreas appeared to be unremarkable. There are no adrenal masses. This morning, chest x-ray, single view chest, shows no bibasilar pulmonary consolidations, otherwise normal chest radiograph. ASSESSMENT: 1. Bibasilar pneumonia, left greater than right, community acquired possibly contributing to some of his acute mental status changes and ongoing weakness as well as his persistent hyponatremia and the elevated inflammatory markers. 2. Valproate-related hyperammonemic encephalopathy improving after decreasing Depakote dosings. 3. Decreased mental status, although improving felt to be secondary to #1 and exacerbated by #2. 4. Diabetes mellitus type 2 showing to be stable. 5. Hypertension, stable and monitoring. 6. Bipolar disorder, manic depressive. Management of his Depakote requiring further modification of Depakote dosings at this time to 500 mg b.i.d. 7. Electrolyte imbalance with a persistent hyponatremia probably secondary to underlying pneumonia exacerbated by some IV fluid management. 8. Febrile illness probably due to underlying pneumonia, now afebrile with initiation of antibiotic therapy. PLAN: Last night I did initiate antibiotic therapy for treatment of pneumonia with Unasyn 3 grams every 8 hours as well as erythromycin. He was started on aggressive pulmonary hygiene with Xopenex treatments and p.r.n. Albuterol as needed. I restarted his Depakote at 500 mg b.i.d. Will closely monitor. He remains saline locked. At this time, his oral intake is adequate. Will continue to monitor his sodium levels. Again, the underlying weakness is going to be limiting factor for deciding of discharge ultimately. His is afraid that he has weakened to such a point at this point she cannot handle him at home. I did have a discussion with her about possibly Swing Bed or even better going to a rehab facility such as [facility]. Will look at doing this referral tomorrow after discussing with his and the patient in more depth. Hopefully be able to discharge within the next 24 to 48 hours. I have encouraged ambulation and good bronchial hygiene. Until discharge will continue to monitor and treat as needed. #[id number] [facility]
[2018-04-18] MEDS: IV SET AND CAP CHANGE INJ INJ SCH (12:24)
[2018-04-18] MEDS ORDERED: SODIUM CHLORIDE 0.9% 250ML 250 ML ONE (19:38)
[2018-04-18] MEDS ORDERED: AZITHROMYCIN IV 500 MG VIAL IVPB ONE (19:39)
[2018-04-18] MEDS: AZITHROMYCIN IV 500 MG in SODIUM CHLORIDE 0.9% 250ML 250 ML IVPB SCH (20:21)
[2018-04-18] MEDS: ATORVASTATIN 20 MG TAB PO SCH (20:30)
[2018-04-19] MEDS ORDERED: SODIUM CHL 0.9% 100ML MINI-BAG 100 ML IVPB ONE ×4 (02:03→19:51)
[2018-04-19] MEDS ORDERED: AMPICILLIN & SULBACTAM SODIUM 3 GM VIAL ONE ×4 (02:04→19:52)
[2018-04-19] MEDS: SODIUM CHLORIDE 0.9% (FLUSH) 10 ML SYG IV PRN ×3 (02:13→13:59)
[2018-04-19] MEDS: AMPICILLIN & SULBACTAM SODIUM 3 GM in SODIUM CHL 0.9% 100ML MINI-BAG 100 ML IVPB SCH ×4 (02:13→20:12)
[2018-04-19] MEDS: INSULIN LISPRO 100 UNITS/ML PEN SUBCU SCH ×4 (07:17→21:23)
--- NOTE | 2018-04-19 07:17 | RAD ---
EXAM: Two view chest. INDICATION: Pneumonia. COMPARISON: Chest x-ray: 04/18/2018. FINDINGS: Cardiac silhouette: Unremarkable. Winnie: Unremarkable. Lobar consolidation: None. Pleural effusion: None. Pneumothorax: None. Other: None. Bones: Unremarkable. Other: None. IMPRESSION: 1. No acute cardiopulmonary process. Electronically signed by: Raymundo Brandon MD 04/19/2018 7:16 AM CDT Workstation: [id number]
[2018-04-19] MEDS: metFORMIN HCL 500 MG TAB PO SCH ×2 (07:56→17:19)
[2018-04-19] MEDS: SODIUM CHLORIDE 0.9% (FLUSH) 10 ML SYG IV SCH ×2 (08:00→21:24)
[2018-04-19] MEDS: LEVALBUTEROL NEBS 1.25 MG/3 ML VIAL NEB SCH ×3 (08:29→23:49)
[2018-04-19] MEDS: DIVALPROEX SODIUM 250 MG TAB PO SCH ×2 (09:00→21:23)
[2018-04-19] MEDS: LEVOTHYROXINE SODIUM 0.075 MG TAB PO SCH (09:00)
[2018-04-19] MEDS: NON-FORMULARY MEDICATION 1 EA MIS (Solifenacin Succinate [Vesicare] 10 MG) PO SCH (09:00)
[2018-04-19] MEDS: LOSARTAN POTASSIUM 100 MG TAB PO SCH (09:00)
[2018-04-19] MEDS: guaiFENesin ER TAB 600 MG TAB PO SCH ×2 (09:00→21:23)
[2018-04-19] MEDS: METOPROLOL SUCCINATE XL 100 MG TAB PO SCH (09:00)
[2018-04-19] MEDS: VENLAFAXINE HCL 300 MG PO SCH (09:01)
[2018-04-19] MEDS: FENOFIBRATE 160 MG PO SCH (09:02)
[2018-04-19] MEDS ORDERED: MAGNESIUM HYDROXIDE 30 ML UD PO ONE (09:24)
[2018-04-19] MEDS: POLYETHYLENE GLYCOL 3350 17 GM PCKT PO SCH (09:50)
--- NOTE | 2018-04-19 15:02 | PN ---
SUPERVISING PHYSICIAN: Richie Dickerson MD DATE: 04/19/18 SUBJECTIVE: The patient this morning was alert initially on exam. He notes he has had a little cough, but has been afebrile overnight. Interestingly, he had a change in his mental status about 40 minutes after he was given his morning medications, which included the Depakote that was resumed today as well as the venlafaxine. He would follow commands, but was very lethargic and would fall asleep just talking to him. OBJECTIVE: VITAL SIGNS: Temperature 97.5. Pulse 65. Blood pressure 120/75. Respirations 18. Saturation 97% on room air at rest. I&Os are not well managed. His had been voiding. His weight is at 74.1 kg, which is actually down from admission of 77.3 kg. GENERAL: Initially, the patient was alert and oriented and in no acute distress , but about 40 minutes after receiving his AM medications, he became lethargic, but was easily arousable, but would fall asleep while talking to him. CHEST: Lungs were clear to auscultation without any rhonchi heard or any wheezing. ABDOMEN: Soft, nontender. EXTREMITIES: Without any clubbing, cyanosis or edema. NEUROLOGIC: He is alert and oriented times three. LABORATORY: Chemistries showed normal electrolytes today with C-reactive protein down to 11.7 after initiation of antibiotic treatment for pneumonia. Given his mental status change, I did repeat an ammonia level that was normal at 35 as well as his liver functions which showed a slight elevation of his AST which is new since admission. Blood sugar was 121. MICROBIOLOGY: Urine culture showed no growth at 36 hours. Blood cultures remain negative after after 4 days. RADIOLOGY: Chest x-ray this morning per radiologic interpretation showed no acute cardiopulmonary processes noted. ASSESSMENT: 1. Bibasilar pneumonia, left greater than right, community acquired with some concerns for possible aspiration pneumonia that was probably contributing to some of his acute mental status changes and ongoing weakness and persistent hyponatremia, although hyponatremia is now normalized. We will continue antibiotics. 2. Valproate-related hyperammonemic encephalopathy, felt be a result of a combination of venlafaxine and Depakote levels resulting in decreasing his mental status and lethargy. 3. Decreased mental status, felt to be due to a combination of valproic acid and venlafaxine, exacerbated by underlying pneumonia. 4. Diabetes mellitus, type 2, stable. 5. Hypertension, stable and monitoring. 6. Bipolar disorder, manic depressive, on Depakote and venlafaxine, requiring ongoing modification of Depakote and monitoring of levels. 7. Electrolyte imbalance with a hyponatremia, felt to be due to underlying pneumonia exacerbated by some IV fluid management, now normalized. 8. Febrile illness due to underlying pneumonia with the patient now being afebrile for 48 hours. PLAN: We will continue with antibiotics for treatment of underlying pneumonia as he is showing good response to that treatment with Unasyn 3 grams every 8 hours as well as erythromycin. Hopefully, he will be able to discharge tomorrow to continue with treatment of pneumonia with Augmentin and azithromycin. He will continue with aggressive pulmonary hygiene with Xopenex and albuterol as needed. I did again restart his Depakote this morning, but interestingly enough, when he took that and the venlafaxine together, he once again become lethargic within less than one hour of administration of medications. His ammonia level was negative, but he did show a slight bump in his AST. I suggest maybe leaving the Depakote level as is, but maybe not taking both together at the same time, possibly taking the venlafaxine later during the day as the Depakote is going to be twice daily. I did talk with Dr. Kahn. Initially he was going to change from 1500 mg b.i.d. to 1000 mg b.i.d., but once again his ammonia level peaked with 1000 mg b.i.d. Therefore, he is now on 500 mg b.i.d. and suggest he take his venlafaxine after or before he takes his Depakote to see if that decreases his decreased mental status and lethargy. There has been discussion of possibly going a rehab facility such as [facility], but he may be able to go home as he is showing increased strength, depending on how his family feels because his at some point felt she was not able to handle him at home. This is an ongoing discussion and hopefully will be able to discharge tomorrow. I again encouraged him to ambulate as well as continued bronchial hygiene. Until discharge, we will continue to monitor the patient closely and treat as needed. #[id number] [facility]
[2018-04-19] MEDS ORDERED: AZITHROMYCIN IV 500 MG VIAL IVPB ONE (19:52)
[2018-04-19] MEDS ORDERED: SODIUM CHLORIDE 0.9% 250ML 250 ML ONE (19:52)
[2018-04-19] MEDS: AZITHROMYCIN IV 500 MG in SODIUM CHLORIDE 0.9% 250ML 250 ML IVPB SCH (21:23)
[2018-04-19] MEDS: ATORVASTATIN 20 MG TAB PO SCH (21:23)
[2018-04-20] MEDS ORDERED: AMPICILLIN & SULBACTAM SODIUM 3 GM VIAL ONE ×4 (01:55→19:38)
[2018-04-20] MEDS ORDERED: SODIUM CHL 0.9% 100ML MINI-BAG 100 ML IVPB ONE ×4 (01:55→19:37)
[2018-04-20] MEDS: AMPICILLIN & SULBACTAM SODIUM 3 GM in SODIUM CHL 0.9% 100ML MINI-BAG 100 ML IVPB SCH ×4 (01:59→22:04)
[2018-04-20] MEDS: INSULIN LISPRO 100 UNITS/ML PEN SUBCU SCH ×4 (07:24→21:42)
[2018-04-20] MEDS: metFORMIN HCL 500 MG TAB PO SCH ×2 (07:56→17:45)
[2018-04-20] MEDS: LEVALBUTEROL NEBS 1.25 MG/3 ML VIAL NEB SCH ×3 (08:07→23:30)
[2018-04-20] MEDS: POLYETHYLENE GLYCOL 3350 17 GM PCKT PO SCH (08:40)
[2018-04-20] MEDS: DIVALPROEX SODIUM 250 MG TAB PO SCH ×2 (08:40→20:47)
[2018-04-20] MEDS: guaiFENesin ER TAB 600 MG TAB PO SCH ×2 (08:40→20:46)
[2018-04-20] MEDS: METOPROLOL SUCCINATE XL 100 MG TAB PO SCH (08:40)
[2018-04-20] MEDS: LEVOTHYROXINE SODIUM 0.075 MG TAB PO SCH (08:40)
[2018-04-20] MEDS: LOSARTAN POTASSIUM 100 MG TAB PO SCH (08:40)
[2018-04-20] MEDS: FENOFIBRATE 160 MG PO SCH (08:41)
[2018-04-20] MEDS: NON-FORMULARY MEDICATION 1 EA MIS (Solifenacin Succinate [Vesicare] 10 MG) PO SCH (08:41)
[2018-04-20] MEDS: SODIUM CHLORIDE 0.9% (FLUSH) 10 ML SYG IV SCH ×2 (08:42→21:42)
[2018-04-20] MEDS ORDERED: SODIUM CHLORIDE 0.9% 250ML 250 ML ONE (19:37)
[2018-04-20] MEDS ORDERED: AZITHROMYCIN IV 500 MG VIAL IVPB ONE (19:38)
[2018-04-20] MEDS ORDERED: AZITHROMYCIN 250 MG TAB PO ONE (20:12)
--- NOTE | 2018-04-20 20:19 | PN ---
DATE: 04/20/18 SUPERVISING PHYSICIAN: Richie Dickerson M.D. SUBJECTIVE: The patient is sitting up in bed. He is alert and able to answer questions. He denies any nausea, vomiting, chest pain or shortness of breath. He has walked in the halls several times. OBJECTIVE: VITAL SIGNS: He is afebrile, heart rate 68, blood [id number]/76, respiratory rate 18, O2 sat 94% on room air. RESPIRATORY: Essentially clear to auscultation bilaterally, somewhat diminished at the bases. CARDIAC: Regular rate and rhythm. GASTROINTESTINAL: Abdomen is soft, nondistended, non-tender. Bowel sounds are positive. NEUROLOGIC: He is awake, alert and oriented times three. LABORATORY: Blood sugars have run between 113 and 240. Preliminary blood cultures show no growth after 5 days. All other labs and films have been reviewed via the EMR. ASSESSMENT: 1. Bibasilar pneumonia, left greater than right, community acquired with some concerns for possible aspiration pneumonia that is slowly resolving. This may have contributed to his mental status changes as well as ongoing weakness and persistent hyponatremia. 2. Valproate-related hyperammonemic encephalopathy, felt be a result of a combination of venlafaxine and Depakote levels resulting in decreasing his mental status and lethargy. 3. Decreased mental status, felt to be due to a combination of valproic acid and venlafaxine, exacerbated by underlying pneumonia. 4. Diabetes mellitus, type 2, stable. 5. Hypertension, stable and monitoring. 6. Bipolar disorder, manic depressive, on Depakote and venlafaxine, requiring ongoing modification of Depakote and monitoring of levels. 7. Electrolyte imbalance with a hyponatremia, felt to be due to underlying pneumonia exacerbated by some IV fluid management, now normalized. 8. Febrile illness due to underlying pneumonia with the patient now being afebrile for 72 hours. PLAN: We will continue present antibiotic treatment as well as present plan of care. He has shown good response to his Unasyn and erythromycin. He will be discharged tomorrow with continued treatment with Augmentin and azithromycin. His Depakote has been decreased to 500 b.i.d. We have changed his venlafaxine to 3:00 PM with his Depakote in the morning and prior to bed. He has not had any mental status changes during that time. I will try to set up a meeting with his prior to his discharge tomorrow so we can discuss his medication regimen. He will have a close followup with as well as Dr. Kahn, his psychiatrist. Continue with good pulmonary hygiene. Hope to discharge tomorrow. In the meantime we will continue to monitor him closely and follow as needed. [facility][id number] [facility]
[2018-04-20] MEDS: AMOXICILLIN & POT CLAVULANATE 875 MG TAB PO SCH (20:45)
[2018-04-20] MEDS: ATORVASTATIN 20 MG TAB PO SCH (20:46)
[2018-04-21] MEDS: INSULIN LISPRO 100 UNITS/ML PEN SUBCU SCH ×2 (07:32→12:16)
[2018-04-21] MEDS: LEVALBUTEROL NEBS 1.25 MG/3 ML VIAL NEB SCH (07:43)
[2018-04-21] MEDS: metFORMIN HCL 500 MG TAB PO SCH (07:56)
[2018-04-21] MEDS: DIVALPROEX SODIUM 250 MG TAB PO SCH (08:37)
[2018-04-21] MEDS: AMOXICILLIN & POT CLAVULANATE 875 MG TAB PO SCH (08:37)
[2018-04-21] MEDS: LOSARTAN POTASSIUM 100 MG TAB PO SCH (08:37)
[2018-04-21] MEDS: POLYETHYLENE GLYCOL 3350 17 GM PCKT PO SCH (08:38)
[2018-04-21] MEDS: FENOFIBRATE 160 MG PO SCH (08:38)
[2018-04-21] MEDS: SODIUM CHLORIDE 0.9% (FLUSH) 10 ML SYG IV SCH (08:39)
[2018-04-21] MEDS: guaiFENesin ER TAB 600 MG TAB PO SCH (08:39)
[2018-04-21] MEDS: NON-FORMULARY MEDICATION 1 EA MIS (Solifenacin Succinate [Vesicare] 10 MG) PO SCH (08:39)
[2018-04-21] MEDS: LEVOTHYROXINE SODIUM 0.075 MG TAB PO SCH (08:40)
[2018-04-21] MEDS: METOPROLOL SUCCINATE XL 100 MG TAB PO SCH (08:40)
[2018-04-21 10:11] VITALS: O2SAT 97
[2018-04-21 13:43] VITALS: BP 125/71; TEMP 97.7
[2018-04-21] MEDS ORDERED: NON-FORMULARY MEDICATION 1 EA MIS (Venlafaxine Hcl [Venlafaxine Hcl Er] 300 MG) PO SCH (15:00)
--- NOTE | 2018-04-30 08:21 | DS ---
SUPERVISING PHYSICIAN: Richie Dickerson MD DISCHARGE DIAGNOSIS: 1. Bibasilar pneumonia, left greater than right, community acquired with some concerns for possible aspiration pneumonia that is slowly resolving. This may have contributed to his mental status changes as well as ongoing weakness and persistent hyponatremia. 2. Valproate-related hyperammonemic encephalopathy, felt be a result of a combination of venlafaxine and Depakote levels resulting in decreasing his mental status and lethargy. 3. Decreased mental status, felt to be due to a combination of valproic acid and venlafaxine, exacerbated by underlying pneumonia. 4. Diabetes mellitus, type 2, stable. 5. Hypertension, stable. 6. Bipolar disorder, manic depressive, on Depakote and venlafaxine, requiring ongoing modification of Depakote and monitoring of levels. 7. Electrolyte imbalance with a hyponatremia, felt to be due to underlying pneumonia exacerbated by some IV fluid management, now normalized. 8. Febrile illness due to underlying pneumonia with the patient now being afebrile for 72 hours. HISTORY OF PRESENT ILLNESS: This is a 68 year-old patient of Dr. Roland Jones who was in the Emergency Room on the for some dizziness, imbalance and altered mental status. He is normally very active and in the last 2 weeks he has had some problems with altered mental status. His has said that he has become very dependent on help from her and her family and he is unable to do most of his activities of daily living. He has had 3 falls prior to his admission to the Emergency Room and has had several near syncopal episodes since then. He has had weakness as well as this altered mental status. He does have a history of bipolar disorder and has been on Depakote for quite some time. He is very compliant with his medications. He also is a diabetic and take Glimepiride as well as has a history of hypertension and hypothyroidism. Today he was in his primary care physician, ' office. It is reported that his mental status was changed from his normal and he had had a full workup in the Emergency Room on the , but due to his mental status as well as his multiple episodes of syncope or near syncope as well as falls, that he be admitted to the hospital for a full workup. He was directly admitted from ' office. Once the patient was here at the hospital a full workup of labs was done as well as an MRI of the brain. 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 No hemorrhage or diffusion restriction. No mass effect. No shift. No cerebral edema. 2) Noncontrast MRI diffusion study showing no evidence of acute or subacute infarction. 3) Moderate inflammatory process of the left leg mastoid air cells. Chronic sinusitis paranasal air cells. A chest x-ray was also obtained and the two view chest shows a negative exam with no suspicious lung nodule or other intrathoracic abnormality. His lab was done and showed a normal white count of 8.1 with hemoglobin 12.6 and hematocrit 38.6. PT and PTT were within normal limits. Chemistry showed sodium 135, potassium 4, chloride 102, carbon dioxide 23, BUN 23, creatinine 0.97. Initial blood sugar was 47. He also had an ammonia of 47 that was up significantly from his ammonia from the 15th which was 25. He also had a valproic acid of 116.8 which was also quite elevated from his 99.3 on the 15th. UA was essentially within normal limits. Urine culture is pending as well as blood culture pending. The patient is admitted for valproic acid toxicity as well as altered mental status. HOSPITAL COURSE: Over the next several days, the patient's medications were adjusted. His valproic acid was held. His ammonia level and his valproic acid levels were monitored very closely. He also had neuro checks. His glimepiride was discontinued. Dr. Nomi Kahn, his psychiatrist, was consulted and his valproic acid was restarted at lower dose once his valproic acid levels normalized. It was found that when he took his valproic acid at a lower dose at 1000 mg b.i.d., when he took his morning dose with his Effexor, he became quite lethargic right after administration of the medications, so his Effexor was changed to 3 o'clock in the afternoon. He continued to get quite lethargic with his valproic acid at 1000 mg b.i.d., so it was decreased to 500 mg b.i.d. He was given some Unasyn for his pneumonia and then transitioned to Augmentin. His labs showed a normal white count throughout his stay with stable hemoglobin and hematocrit. His blood sugars ran in the 100s most of the time with an occasional drop to the 70s, but his sliding scale insulin was continued. C- reactive protein was high at 16.5 and two days later, it was down to 11.7. Electrolytes initially showed a sodium that had dropped to 132, but on the date of discharge is 137. His other electrolytes remained within normal limits. His valproic acid on admission was 116.8 and on 04/17/18 was 33.2. His blood cultures showed no growth after 5 days. His chest x-ray prior to discharge showed no acute cardiopulmonary processes. The patient is alert and oriented times 48 hours. At this point, he will be discharged home and have close followup with , his primary care physician as well as Dr. Kahn, his psychiatrist. DISCHARGE PLAN: The patient will be discharged home in stable condition. He is to resume his previous activity as well as his previous medications with the exception of his valproic acid is 500 mg b.i.d. He is to take his Effexor at 3 o'clock in the afternoon. He has also been given Augmentin for his pneumonia as well as guaifenesin. His glimepiride has been discontinued. He is to followup with ' office or return to the hospital for any problems or complications. DISCHARGE MEDICATIONS: 1. Levothyroxine. 2. Losartan. 3. Atorvastatin. 4. Venlafaxine. 5. Metoprolol succinate. 6. Fenofibrate. 7. VESIcare. 8. Metformin. 9. Aspirin. 10. Depakote. 11. Niacin. 12. Augmentin. 13. Guaifenesin. #[id number] [facility]
== END 2018-04-21 16:00 | disposition home or self-care (01) | DRG 193 ==
LOC: MS 11:30
PROVIDERS: ADMIT Nurse Practitioner Acute Care; ATTEND Nurse Practitioner Acute Care
DX: J18.9 Pneumonia, unspecified organism (principal); G92 Toxic encephalopathy; E87.1 Hypo-osmolality and hyponatremia; R29.6 Repeated falls; E11.649 Type 2 diabetes mellitus with hypoglycemia without coma; I10 Essential (primary) hypertension; E03.9 Hypothyroidism, unspecified; I25.2 Old myocardial infarction; F31.9 Bipolar disorder, unspecified; Z86.73 Personal history of transient ischemic attack (TIA), and cerebral infarction without residual deficits; E78.5 Hyperlipidemia, unspecified; M19.90 Unspecified osteoarthritis, unspecified site; I65.29 Occlusion and stenosis of unspecified carotid artery; K21.9 Gastro-esophageal reflux disease without esophagitis; T42.6X1A Poisoning by other antiepileptic and sedative-hypnotic drugs, accidental (unintentional), initial encounter; Z88.7 Allergy status to serum and vaccine; Z87.891 Personal history of nicotine dependence; Z79.84 Long term (current) use of oral hypoglycemic drugs; Z79.82 Long term (current) use of aspirin

== ENCOUNTER → 2018-05-25 | Outpatient (CLI) | payer MEDICARE | LOC: GMAJ 11:34 | PROVIDERS: ATTEND Family Medicine | DX: Z12.5 Encounter for screening for malignant neoplasm of prostate (principal); Z79.899 Other long term (current) drug therapy; E03.9 Hypothyroidism, unspecified | CPT/HCPCS: 80164; 84443; G0103 ==

== ENCOUNTER → 2018-09-20 | Outpatient (CLI) | payer MEDICARE | LOC: GMAJ 11:21 | PROVIDERS: ATTEND Family Medicine | DX: E03.9 Hypothyroidism, unspecified (principal); Z79.899 Other long term (current) drug therapy ==

== ENCOUNTER → 2019-01-17 | Outpatient (CLI) | payer MEDICARE ==
--- NOTE | 2019-01-17 15:25 | RAD ---
PROVIDED CLINICAL HISTORY/REASON FOR EXAM: RENAL STONES Findings: Number of images: 1 Location: abdomen Nonobstructive bowel gas pattern. No suspicious calcification. No acute osseous abnormalities. Soft tissues are unremarkable. Large stool volume. The renal shadows are poorly seen due to overlying bowel gas and stool. IMPRESSION: Nonobstructive bowel gas pattern. No suspicious calcification although evaluation is markedly limited. Electronically signed by: Aj Garcia MD 01/17/2019 3:22 PM CDT
== END ==
LOC: RAD 13:34
PROVIDERS: ATTEND Urology
DX: N20.0 Calculus of kidney (principal)

== ENCOUNTER → 2019-01-20 | Outpatient (CLI) | payer MEDICARE ==
--- NOTE | 2019-01-21 14:25 | MRI ---
EXAM DESCRIPTION: Cervical Spine: MRI. CLINICAL HISTORY: 68 years Male DISC DISORDER WITH RADICULOPATHY COMPARISON: Cervical TECHNIQUE: Multiplanar, high-field MRI, multiple sequences, non-contrast Cervical spine. Technically difficult study due to patient motion. FINDINGS: C2-C3: Normal signal in the disc with disc space maintained. Arthrosis hypertrophic left facet with minimal to moderate foraminal narrowing. C3-C4: Minimal disc desiccation with disc space maintained and no bulging. Bilateral hypertrophic facet arthrosis more on the left with left neural foraminal stenosis. Moderate right neural foraminal narrowing. Canal is patent. C4-C5: Normal signal in the disc with disc space maintained. Bilateral uncinate spurs. Posterior ligament thickening. Bilateral facet arthrosis more on the left than the right. Fluid posterior to the left facet. Left neural foraminal stenosis. C5-C6: Minimal disc desiccation with disc space maintained. Bilateral small uncinate spurs. Hypertrophic facet arthrosis more on the right than the left. Right neural foraminal stenosis. C6-C7: Disc desiccation and moderate disc space loss. Posterior broad-based bulge with left paracentral focal bulge or protrusion. Impressing on the left ventral cord. Borderline left paracentral canal stenosis. Bilateral uncinate spurs and mild bilateral facet hypertrophic arthrosis. Bilateral moderate foraminal narrowing. C7-T1: Normal signal in the disc with tiny posterior bulge. Disc space maintained. Minimal bilateral posterior ligament thickening. Bilateral foramina are patent. No canal narrowing. Normal signal in the remaining discs with no bulging. Disc spaces preserved. Canal and neural foramina are patent. Facet joints negative. Spinal alignment C5-C7 kyphosis mild. No cord compression or cord edema. Atlantoaxial joint mild arthrosis and hypertrophy.. Base of the cerebellar tonsils is above the foramen magnum. Paravertebral soft tissues unremarkable.. Vertebral bodies are not compressed at any level. Normal marrow signal in the remaining vertebral bodies and the posterior elements. IMPRESSION: 1. Multiple levels of disc bulging, hypertrophic facet arthrosis, and flavum ligament thickening. Also uncinate spur hypertrophy at some levels. 2. Hypertrophic left facet at C2-C3, with moderate left neural foraminal narrowing. 3. Bilateral hypertrophic facet arthrosis at C3-C4 with left neural foraminal stenosis. Correlate for left C4 radiculopathy. 4. Bilateral hypertrophic facet arthrosis at C4-C5. More on the left with fluid and edema posterior to the facet joint. Left neural foraminal stenosis. Correlate for left C5 radiculopathy. 5. Hypertrophic facet arthrosis on the right at C5-C6 with right neural foraminal stenosis. Correlate for right C6 radiculopathy. 6. Left posterior focal protrusion C6-C7 disc impressing on the left ventral cord. Bilateral mild facet hypertrophic arthrosis. Correlate for left C7 radiculopathy. Electronically signed by: aKiser Cifuentes MD 01/21/2019 2:24 PM CDT
== END ==
LOC: MRI 13:07
PROVIDERS: ATTEND Family Medicine
DX: M50.10 Cervical disc disorder with radiculopathy, unspecified cervical region (principal); M47.22 Other spondylosis with radiculopathy, cervical region; M48.02 Spinal stenosis, cervical region

== ENCOUNTER 2019-03-15 16:01 | Observation (INO) | payer MEDICARE ==
[2019-03-15] MEDS ORDERED: SODIUM CHLORIDE 0.9% 1000ML 1,000 ML IVS ONE (16:53)
--- NOTE | 2019-03-15 16:53 | ED.PDOC ---
History of Present Illness - General Chief Complaint: General Stated Complaint: NEAR SYNCOPE Time Seen by Provider: 03/15/19 16:38 - History of Present Illness Initial Comments: 69 yo M PMH HTN HL DM Bipolar Disorder (denies hallucinations SI HI without suicide plan) preents to ED at bedside c/o near syncopal episode and one episode nausea vomiting while attempting to change tire in the heat at 02:30pm today. Pt. requires frequent redirection and is a poor historian but of 46 years says pt at his baseline. Denies fever chills nausea vomiting diarrhea chest pain sob diaphoresis. No change in diet rest bowel or bladder. Admits occasional drinking denies smoking admits FH HTN DM has PMD for follow up no other c/o today. Allergies/Adverse Reactions: Allergies Tetanus Toxoid Allergy (Verified 04/12/18 03:26) Home Medications: Ambulatory Orders Aspirin [Aspirin Childrens] 81 mg PO DAILY 04/15/18 Atorvastatin Calcium 40 mg PO DAILY 04/15/18 Divalproex Sodium [Depakote] 500 mg PO BID 04/15/18 Fenofibrate 160 mg PO DAILY 04/15/18 Levothyroxine Sodium 75 mcg PO DAILY 04/15/18 Losartan Potassium 100 mg PO DAILY 04/15/18 Metformin HCl [Metformin Hydrochloride] 1,000 mg PO BID 04/15/18 Metoprolol Succinate [Metoprolol Succinate ER] 100 mg PO DAILY 04/15/18 Niacin [Niacin Tr] 1,000 mg PO BID 04/15/18 Venlafaxine HCl [Venlafaxine HCl ER] 300 mg PO 1500 #0 04/21/18 Oxybutynin Chloride 5 mg PO TID 03/15/19 Review of Systems - Review of Systems Constitutional: States: see HPI EENTM: States: no symptoms reported Respiratory: States: no symptoms reported Cardiology: States: syncope Gastrointestinal/Abdominal: States: nausea, vomiting Genitourinary: States: no symptoms reported Musculoskeletal: States: no symptoms reported Skin: States: no symptoms reported Neurological: States: see HPI All other Systems: Reviewed and Negative Past Medical History (General) - Patient Medical History Hx Seizures: No Hx Stroke: No Hx Asthma: No Hx of COPD: No Hx Congestive Heart Failure: No Hx Pacemaker: No Hx Hypertension: Yes Hx Thyroid Disease: Yes Hx Diabetes: Yes - type 2 oral Hx MRSA: No Surgical History: other - Vaccination History Hx Influenza Vaccination: Yes - Social History Hx Tobacco Use: No Hx Alcohol Use: No Hx Substance Use: No Hx Physical Abuse: No Hx Emotional Abuse: No Family Medical History - Family History Father Family History: Unknown Living Status: Hx Family;Other: dad, ALS Mother Living Status: Still Living Hx Family Hypertension: Yes Hx Family Cancer: Yes - lung Physical Exam - Physical Exam General Appearance: No apparent distress Eye Exam: bilateral normal Ears, Nose, Throat: normal ENT inspection Neck: non-tender, full range of motion Respiratory: normal breath sounds Cardiovascular/Chest: regular rate, rhythm Gastrointestinal/Abdominal: non tender, soft Extremity: normal range of motion Neurologic: no motor/sensory deficits Skin Exam: normal color Progress - Progress Progress: 03/15/19 16:56 A/P-Near Syncope, Dehydration, Heat Exhaustion- 1.fall precautions IV bolus cxr cbc cmp lipase ck trop ct head poc gluc reassess 03/15/19 18:42 Labs reveal Anion Gap of 20 with signs of dehydration and heat exhaustion, plan to ADMIT for Observation 03/15/19 18:50 Spoke with Ozzy Hager Hospitalist agrees to admit observation - Results/Orders Results/Orders: EKG-NSR 92bpm non specific TW Changes No STEMI Laboratory Tests 03/15/19 03/15/19 03/15/19 15:55 15:55 15:55 WBC 7.5 RBC 4.49 L Hgb 12.9 L Hct 37.4 L MCV 83.4 MCH 28.7 MCHC 34.4 RDW 15.2 H Plt Count 304 MPV 10.3 Absolute Neuts (auto) 4.00 Absolute Lymphs (auto) 2.50 Absolute Monos (auto) 0.70 Absolute Eos (auto) 0.20 Absolute Basos (auto) 0.10 Neutrophils % 53.2 Lymphocytes % 33.9 Monocytes % 9.6 H Eosinophils % 2.2 Basophils % 1.1 Sodium 135 Potassium 4.0 Chloride 99 L Carbon Dioxide 20 L Anion Gap 20.0 H BUN 19 H Creatinine 1.04 BUN/Creatinine Ratio 18.3 Random Glucose 323 H Serum Osmolality 284.8 Calcium 10.4 H Total Bilirubin 0.7 AST 35 ALT 32 Alkaline Phosphatase 90 Creatine Kinase CK-MB (CK-2) 4.2 Troponin I < 0.02 Serum Total Protein 7.8 Albumin 4.2 Globulin 3.6 H Albumin/Globulin Ratio 1.2 Lipase Urine Color Urine Appearance Urine pH Ur Specific Norton Urine Protein Urine Glucose (UA) Urine Ketones Urine Blood Urine Nitrite Urine Bilirubin Urine Urobilinogen Ur Leukocyte Esterase Urine RBC Urine WBC Ur Epithelial Cells Amorphous Sediment Urine Bacteria 03/15/19 03/15/19 03/15/19 15:55 16:35 16:59 WBC RBC Hgb Hct MCV MCH MCHC RDW Plt Count MPV Absolute Neuts (auto) Absolute Lymphs (auto) Absolute Monos (auto) Absolute Eos (auto) Absolute Basos (auto) Neutrophils % Lymphocytes % Monocytes % Eosinophils % Basophils % Sodium Potassium Chloride Carbon Dioxide Anion Gap BUN Creatinine BUN/Creatinine Ratio Random Glucose Serum Osmolality Calcium Total Bilirubin AST ALT Alkaline Phosphatase Creatine Kinase 183 H CK-MB (CK-2) Troponin I Serum Total Protein Albumin Globulin Albumin/Globulin Ratio Lipase 46 Urine Color Yellow Urine Appearance Sl cloudy Urine pH 7.0 Ur Specific Norton 1.020 Urine Protein 100 H Urine Glucose (UA) 500 H Urine Ketones Negative Urine Blood Negative Urine Nitrite Negative Urine Bilirubin Negative Urine Urobilinogen 0.2 Ur Leukocyte Esterase Negative Urine RBC 0-1 Urine WBC 0-1 Ur Epithelial Cells 0 Amorphous Sediment 1+ Urine Bacteria 0 EXAM DESCRIPTION: XR Chest, 1 View CLINICAL HISTORY: 69 years Male AMS TECHNIQUE: One view of the chest. COMPARISON: No prior exams provided for comparison. FINDINGS: The lungs are clear without focal consolidation, effusion, or pneumothorax. The cardiomediastinal silhouette and central pulmonary vasculature are normal. No acute osseous abnormalities. IMPRESSION: No acute cardiopulmonary abnormalities. Electronically signed by: Kayleigh Salcedo MD 03/15/2019 6:11 PM CDT EXAM: CT Head Without And With Intravenous Contrast CLINICAL HISTORY: near syncope TECHNIQUE: Axial computed tomography images of the head/brain without and with intravenous contrast. Sagittal and coronal reformatted images were created and reviewed. This CT exam was performed using one or more of the following dose reduction techniques: automated exposure control, adjustment of the mA and/or kV according to patient size, and/or use of iterative reconstruction technique. COMPARISON: No relevant prior studies available. FINDINGS: Limitations: None. Brain: There is age related cortical atrophy and periventricular white matter hypodensity most consistent with chronic small ischemic change. No acute infarct, hemorrhage or mass. Ventricles: Unremarkable. No ventriculomegaly. Bones/joints: Unremarkable. No acute fracture. Soft tissues: Unremarkable. Sinuses: Unremarkable as visualized. No acute sinusitis. Mastoid air cells: Unremarkable as visualized. No mastoid effusion. IMPRESSION: No acute findings. Electronically signed by: Beth Miranda MD 03/15/2019 5:51 PM CDT Departure - Departure Clinical Impression: Syncope and collapse, Dehydration after exertion Heat exhaustion Qualifiers: Encounter type: initial encounter Qualified Code(s): T67.5XXA - Heat exhaustion, unspecified, initial encounter Time of Disposition: 18:53 Disposition: Admit Patient Condition: Fair Departure Forms: ED Discharge - Pt. Copy, Patient Portal Self Enrollment Referrals: Roland Jones MD [Primary Care Provider] - 1-2 Weeks Home Medications: Ambulatory Orders Aspirin [Aspirin Childrens] 81 mg PO DAILY 04/15/18 Atorvastatin Calcium 40 mg PO DAILY 04/15/18 Divalproex Sodium [Depakote] 500 mg PO BID 04/15/18 Fenofibrate 160 mg PO DAILY 04/15/18 Levothyroxine Sodium 75 mcg PO DAILY 04/15/18 Losartan Potassium 100 mg PO DAILY 04/15/18 Metformin HCl [Metformin Hydrochloride] 1,000 mg PO BID 04/15/18 Metoprolol Succinate [Metoprolol Succinate ER] 100 mg PO DAILY 04/15/18 Niacin [Niacin Tr] 1,000 mg PO BID 04/15/18 Venlafaxine HCl [Venlafaxine HCl ER] 300 mg PO 1500 #0 04/21/18 Oxybutynin Chloride 5 mg PO TID 03/15/19 Decision To Admit - Decistion To Admit Decision to Admit Date: 03/15/19 Decision to Admit Time: 18:51
[2019-03-15] MEDS ORDERED: ONDANSETRON INJ 4 MG/2 ML VIAL IV ONE (16:54)
--- NOTE | 2019-03-15 17:53 | CT ---
EXAM: CT Head Without And With Intravenous Contrast CLINICAL HISTORY: near syncope TECHNIQUE: Axial computed tomography images of the head/brain without and with intravenous contrast. Sagittal and coronal reformatted images were created and reviewed. This CT exam was performed using one or more of the following dose reduction techniques: automated exposure control, adjustment of the mA and/or kV according to patient size, and/or use of iterative reconstruction technique. COMPARISON: No relevant prior studies available. FINDINGS: Limitations: None. Brain: There is age related cortical atrophy and periventricular white matter hypodensity most consistent with chronic small ischemic change. No acute infarct, hemorrhage or mass. Ventricles: Unremarkable. No ventriculomegaly. Bones/joints: Unremarkable. No acute fracture. Soft tissues: Unremarkable. Sinuses: Unremarkable as visualized. No acute sinusitis. Mastoid air cells: Unremarkable as visualized. No mastoid effusion. IMPRESSION: No acute findings. Electronically signed by: Beth Miranda MD 03/15/2019 5:51 PM CDT
--- NOTE | 2019-03-15 18:12 | RAD ---
EXAM DESCRIPTION: XR Chest, 1 View CLINICAL HISTORY: 69 years Male AMS TECHNIQUE: One view of the chest. COMPARISON: No prior exams provided for comparison. FINDINGS: The lungs are clear without focal consolidation, effusion, or pneumothorax. The cardiomediastinal silhouette and central pulmonary vasculature are normal. No acute osseous abnormalities. IMPRESSION: No acute cardiopulmonary abnormalities. Electronically signed by: Kayleigh Salcedo MD 03/15/2019 6:11 PM CDT
--- NOTE | 2019-03-15 20:06 | HP ---
SUPERVISING PHYSICIAN: Richie Dickerson MD CHIEF COMPLAINT: Near syncopal episode. HISTORY OF PRESENT ILLNESS: Mr. Powell is a 69-year-old male patient with past medical history of hypertension, hyperlipidemia, diabetes mellitus, bipolar disorder without any hallucinations, suicidal ideations or homicidal ideations. He presented to the Emergency Room today with his complaining of a near syncopal episode with one episode of nausea and vomiting while he was trying to change a tire on a car around 2:30 around yesterday afternoon. He denied fever, chills, vomiting, chest pain or diaphoresis on admission. No significant changes in bowel habits or other complaints. His laboratory studies showed white count 7,500, hemoglobin 12.9, hematocrit 37.4, differential without a left shift. Chemistries showed an elevated blood sugar of 323 with calcium 10.4. Anion gap 20, BUN 19, carbon dioxide 20. Sodium and potassium within normal limits with sodium 135, corrected for 323 glucose of 138. Liver functions were all within normal limits. Troponin was less than 0.02. Lipase was normal. He also had a CT of the head with and without contrast and per radiologic interpretation showed no acute findings. Chest x-ray was also per radiologic interpretation without any acute findings. Vital signs on admission showed temperature 98.8, pulse 91, blood pressure 157/73, respirations 20, saturation 94% on room air. Given that he had a near syncopal episode and more likely related to heat exhaustion, he was started on fluid replacement initially and is now going to be placed in observation for continuation of fluid management and close observation. He was placed in observation in stable condition. PAST MEDICAL HISTORY: 1. Acquired hypothyroidism. 2. Bipolar disorder. 3. Cerebrovascular accident. 4. Diabetes mellitus, type 2. 5. Hypertension. 6. Hyperlipidemia. 7. Osteoarthritis. 8. Carotid artery stenosis. 9. Gastroesophageal reflux disease. 10. Multiple kidney stones. PAST SURGICAL HISTORY: 1. Arthroscopy of left knee. 2. Left inguinal hernia repair. 3. Right rotator cuff repair. CURRENT MEDICATIONS: 1. Venlafaxine 300 mg at 1500. 2. Probiotic twice a day. 3. Oxybutynin 5 mg t.i.d. 4. Niacin 1000 mg b.i.d. 5. Metoprolol succinate extended release 100 mg daily. 6. Metformin 1000 mg b.i.d. 7. Melatonin 3 mg at bedtime. 8. Levothyroxine 75 mcg daily. 9. [place]-3 fish oil 1200 mg tablet twice a day. 10. Fenofibrate 160 mg at bedtime. 11. Depakote 500 mg b.i.d. 12. Atorvastatin 40 mg at bedtime. 13. Aspirin 81 mg daily. ALLERGIES: TETANUS TOXOID. FAMILY HISTORY: Positive for ALS and hypertension. SOCIAL HISTORY: The patient is . He has 4 children. He was a tobacco smoker, but quit multiple years previously. He does drink alcohol occasionally. He does not do an illicit drugs. He lives in [place]. He is retired. REVIEW OF SYSTEMS: CONSTITUTIONAL: Positive for general malaise. Negative for any fevers. HEENT: Negative for sore throats, earaches, nasal congestion, headaches, vision changes. RESPIRATORY: Denies shortness of breath, wheezing, coughing. CARDIOVASCULAR: Negative for chest pain. Syncopal episode as per history of present illness. GASTROINTESTINAL: Positive for nausea and vomiting. Denies diarrhea, constipation or abdominal pain. GENITOURINARY: Negative for dysuria, hematuria, polyuria. MUSCULOSKELETAL: No significant symptoms to report. SKIN: No notable changes, lesions or rashes. NEUROLOGIC: Positive for syncopal episode as per history of present illness. Denies ataxia, seizures or other neurological deficits. PHYSICAL EXAMINATION: VITAL SIGNS: Initially on admission, temperature 98.4, pulse 91, blood pressure 157/73, respirations 20, saturation 94% on room air. GENERAL: The patient appeared to be resting comfortably, visiting with his , appeared to be in no acute distress. Per his , the patient is back to his baseline normal mental status. HEENT: Tympanic membranes clear bilaterally. Oropharynx is pink with dry mucous membranes. NECK: Supple, nontender with full range of motion. No jugular venous distention noted. RESPIRATORY: Lungs clear to auscultation bilaterally without any rhonchi, wheezes or rales. CARDIOVASCULAR: Regular rate and rhythm without any appreciable murmurs, gallops, or rubs. ABDOMEN: Soft, nontender. Positive bowel sounds. EXTREMITIES: There is no cyanosis, clubbing or edema. NEUROLOGIC: The patient is alert and oriented times three. Cranial nerves II- XII are grossly intact. Facial features are symmetrical. Extraocular movements are within normal limits. There is no nystagmus noted. SKIN: Warm, pink and dry. LABORATORY: White count 7,500, hemoglobin 12.9, hematocrit 37.4, platelet count 304,000, differential without a left shift. Chemistries show normal sodium and potassium, but his blood sugar was 323 with sodium 138. Chloride 99. He did have a low carbon dioxide of 20 and high anion gap at 20 with BUN 19. Calcium elevated at 10.4. Liver functions all within normal limits. Troponin less than 0.02. Urinalysis showed 100 protein, 500 glucose, otherwise within normal limits. RADIOLOGY: CT of the head with and without contrast was without any acute findings. Chest x-ray per radiologic interpretation of a single-view chest shows no acute cardiopulmonary abnormalities. ASSESSMENT: 1. Syncopal episode secondary to heat exposure and dehydration exacerbation. 2. Dehydration secondary to heat exposure, requiring fluid resuscitation. 3. Mild electrolyte imbalance with hypokalemia and hypomagnesemia. 4. Diabetes mellitus, type 2, poorly controlled with hyperglycemia on admission. 5. Major depressive disorder without any signs of hallucinations or suicidal or homicidal ideations. 6. Hypertension. PLAN: We are going to place the patient in observation for continued fluid management. We will go ahead and give him a liter of LR in addition to what was given in the Emergency Room. We will follow this up with maintenance fluids with half normal saline at 125 an hour. We will also replace his magnesium with 2 grams magnesium IV. We will start him on sliding scale insulin protocol. He will be on DVT prophylaxis with Lovenox. We will resume his home medications once those have been updated and verified. We will plan to follow his labs in the morning to include just a BMP to see if we are correcting for the change in fluid status. Anticipate hopefully being able to discharge tomorrow or the next. Until then, we will continue to monitor and treat as needed. #[id number] [facility]
[2019-03-15] MEDS ORDERED: DEXTROSE 50% 25 GM/50 ML SYG IV PRN (21:55)
[2019-03-15] MEDS ORDERED: GLUCAGON INJ 1 MG VIAL SUBCU PRN (21:55)
[2019-03-15] MEDS ORDERED: ONDANSETRON INJ 4 MG/2 ML VIAL IV PRN (21:57)
[2019-03-15] MEDS ORDERED: MAGNESIUM HYDROXIDE 30 ML UD PO PRN (21:57)
[2019-03-15] MEDS ORDERED: SODIUM CHLORIDE 0.9% (FLUSH) 10 ML SYG IV PRN (21:57)
[2019-03-15] MEDS ORDERED: ALUM & MAG HYDROX-SIMETHICONE 30 ML UD PO PRN (21:57)
[2019-03-15] MEDS ORDERED: ACETAMINOPHEN 325 MG TAB PO PRN (21:57)
[2019-03-15] MEDS ORDERED: NON-FORMULARY MEDICATION 1 EA MIS (Metformin Hcl [Metformin Hydrochloride] 1,000 MG) PO SCH (22:00)
[2019-03-15] MEDS ORDERED: IV SET AND CAP CHANGE INJ INJ SCH (22:00)
[2019-03-15] MEDS ORDERED: MAGNESIUM SULFATE PREMIX 2GM 2 GM in PREMIX BAG 1 BAG IVPB ONE (22:32)
[2019-03-15] MEDS ORDERED: INSULIN LISPRO 100 UNITS/ML PEN SUBCU ONE (22:34)
[2019-03-15] MEDS ORDERED: SODIUM CHLORIDE 0.45% 1000ML 1,000 ML IVS PRN (22:41)
[2019-03-15] MEDS ORDERED: LACTATED RINGERS 1,000 ML IVS ONE (22:42)
[2019-03-15] MEDS ORDERED: metFORMIN HCL 500 MG TAB ONE (22:46)
[2019-03-15] MEDS ORDERED: MAGNESIUM SULFATE PREMIX 2GM 50 ML IVPB ONE (22:47)
[2019-03-15] MEDS: OXYBUTYNIN CL 5 MG TAB PO SCH (22:50)
[2019-03-15] MEDS: DIVALPROEX SODIUM DR 250 MG TAB PO SCH (22:50)
[2019-03-16] MEDS ORDERED: OMEPRAZOLE CAP 20 MG CAP PO SCH (06:30)
[2019-03-16] MEDS ORDERED: ATORVASTATIN 20 MG TAB PO ONE (07:25)
[2019-03-16] MEDS: INSULIN LISPRO 100 UNITS/ML PEN SUBCU SCH ×2 (07:50→12:41)
[2019-03-16] MEDS: DIVALPROEX SODIUM DR 250 MG TAB PO SCH (08:40)
[2019-03-16] MEDS: OXYBUTYNIN CL 5 MG TAB PO SCH (08:41)
[2019-03-16] MEDS ORDERED: NIACIN 1000 MG PO SCH (09:00)
[2019-03-16] MEDS ORDERED: ASPIRIN (CHEWABLE) 81 MG TAB PO SCH (09:00)
[2019-03-16] MEDS ORDERED: LOSARTAN POTASSIUM 100 MG TAB PO SCH (09:00)
[2019-03-16] MEDS ORDERED: NON-FORMULARY MEDICATION 1 EA MIS (Atorvastatin Calcium [Atorvastatin Calcium] 40 MG) PO SCH (09:00)
[2019-03-16] MEDS ORDERED: FENOFIBRATE 160 MG PO SCH (09:00)
[2019-03-16] MEDS ORDERED: LEVOTHYROXINE SODIUM 0.075 MG TAB PO SCH (09:00)
[2019-03-16] MEDS ORDERED: METOPROLOL SUCCINATE XL 100 MG TAB PO SCH (09:00)
[2019-03-16] MEDS ORDERED: MAGNESIUM SULFATE PREMIX 2GM 2 GM in PREMIX BAG 1 BAG IVPB ONE (11:42)
[2019-03-16] MEDS ORDERED: MAGNESIUM SULFATE PREMIX 2GM 50 ML IVPB ONE (11:44)
[2019-03-16 13:04] VITALS: BP 158/76; TEMP 97.4; O2SAT 96
[2019-03-16] MEDS ORDERED: FENOFIBRIC ACID 135 MG CAP PO SCH (13:30)
[2019-03-16] MEDS ORDERED: VENLAFAXINE XR 75 MG CAP PO SCH (15:00)
[2019-03-17] MEDS ORDERED: LEVOTHYROXINE SODIUM 0.075 MG TAB PO SCH (06:30)
[2019-03-17] MEDS ORDERED: ATORVASTATIN 20 MG TAB PO SCH (09:00)
--- NOTE | 2019-03-30 14:24 | DS ---
SUPERVISING PHYSICIAN: Richie Dickerson MD ADMISSION DIAGNOSIS: 1. Syncopal episode secondary to heat exposure and dehydration exacerbation. 2. Dehydration secondary to heat exposure, requiring fluid resuscitation. 3. Mild electrolyte imbalance with hypokalemia and hypomagnesemia. 4. Diabetes mellitus, type 2, poorly controlled with hyperglycemia on admission. 5. Major depressive disorder without any signs of hallucinations or suicidal or homicidal ideations. 6. Hypertension. DISCHARGE DIAGNOSIS: 1. Syncopal episode secondary to heat exposure and dehydration exacerbation with no additional syncopal episodes noted on hospitalization. 2. Dehydration secondary to heat exposure, resolved with fluids. 3. Mild electrolyte imbalance with hypokalemia and hypomagnesemia, back to baseline levels with parenteral replacement. 4. Diabetes mellitus, type 2, poorly controlled with hyperglycemia on admission. 5. Major depressive disorder without any signs of hallucinations or suicidal or homicidal ideations. 6. Hypertension, stable. REASON FOR HOSPITALIZATION: Mr. Powell is a 69-year-old male patient with past medical history of hypertension, hyperlipidemia, diabetes mellitus, bipolar disorder without any hallucinations, suicidal ideations or homicidal ideations. He presented to the Emergency Room today with his complaining of a near syncopal episode with one episode of nausea and vomiting while he was trying to change a tire on a car around 2:30 around yesterday afternoon. He denied fever, chills, vomiting, chest pain or diaphoresis on admission. No significant changes in bowel habits or other complaints. His laboratory studies showed white count 7,500, hemoglobin 12.9, hematocrit 37.4, differential without a left shift. Chemistries showed an elevated blood sugar of 323 with calcium 10.4. Anion gap 20, BUN 19, carbon dioxide 20. Sodium and potassium within normal limits with sodium 135, corrected for 323 glucose of 138. Liver functions were all within normal limits. Troponin was less than 0.02. Lipase was normal. He also had a CT of the head with and without contrast and per radiologic interpretation showed no acute findings. Chest x-ray was also per radiologic interpretation without any acute findings. Vital signs on admission showed temperature 98.8, pulse 91, blood pressure 157/73, respirations 20, saturation 94% on room air. Given that he had a near syncopal episode and more likely related to heat exhaustion, he was started on fluid replacement initially and is now going to be placed in observation for continuation of fluid management and close observation. He was placed in observation in stable condition. LABORATORY: White count on admission 7,500. Differential was without a left shift. Chemistries on admission showed normal electrolytes except for a little low carbon dioxide at 20. He did have an anion gap of 20. This resolved with fluids. Prior to discharge, electrolytes at normalized. Creatinine was at 0.7. CPK 183. All other liver functions were within normal limits. He did have a low magnesium of 1.4 which returned to baseline at 1.6 with replacement. Blood sugars were 191 to 196. RADIOLOGY: Chest x-ray per radiologic interpretation showed no acute cardiopulmonary abnormalities. He also had a CT of the head without contrast and per radiologic interpretation showed no acute findings. EKG showed normal sinus rhythm with no concerning ST or T-wave changes. HOSPITAL COURSE: Mr. Powell was admitted for heat exposure and started on IV fluid replacement. He responded well to treatment. He was having good urine output, was having good oral intake and was back to baseline levels as far as his mental status. It was felt he had improved clinically enough to continue with outpatient management. DISCHARGE PHYSICAL EXAMINATION: VITAL SIGNS: Temperature 97.4. Pulse 81. Blood pressure 158/76. Respiratory rate 16. Saturation 96% on room air. GENERAL: The patient is resting comfortably. CHEST: Clear to auscultation. HEART: Regular rate and rhythm. ABDOMEN: Soft, nontender, positive bowel sounds. EXTREMITIES: No cyanosis, clubbing or edema. NEUROLOGIC: Alert and oriented times 3. PLAN: Mr. Powell was discharged on 03/16/19 to followup with in 1 to 2 weeks. He was to resume his medications as instructed. He was to hold his metformin until the morning after due to the fact that his creatinine was a little bumped. He was to push fluids to keep hydrated and told to return to the hospital should he have any concerning symptoms. Diet on discharge was diabetic diet. He was encouraged to monitor his blood sugars. Activity to increase as tolerated, but to avoid extreme heat. No new medications were prescribed at discharge. DISCHARGE HOME MEDICATION: 1. Probiotic. 2. Fish oil. 3. Melatonin. 4. Fenofibrate. 5. Atorvastatin. 6. Venlafaxine. 7. Niacin. 8. Metoprolol extended release. 9. Metformin. 10. Levothyroxine. 11. Depakote. 12. Aspirin. 13. Oxybutynin. CONDITION ON DISCHARGE: Stable and improved. DISPOSITION: The patient is discharged home. #[id number] [facility]
== END 2019-03-16 13:30 | disposition home or self-care (01) ==
LOC: ER 16:01 → MS 20:05
PROVIDERS: ADMIT Nurse Practitioner Family; ATTEND Nurse Practitioner Family
DX: T67.1XXA Heat syncope, initial encounter (principal); T67.5XXA Heat exhaustion, unspecified, initial encounter; E86.0 Dehydration; E87.8 Other disorders of electrolyte and fluid balance, not elsewhere classified; E87.6 Hypokalemia; E83.42 Hypomagnesemia; E11.65 Type 2 diabetes mellitus with hyperglycemia; F31.9 Bipolar disorder, unspecified; I10 Essential (primary) hypertension; E78.5 Hyperlipidemia, unspecified; K21.9 Gastro-esophageal reflux disease without esophagitis; M19.90 Unspecified osteoarthritis, unspecified site; Z79.84 Long term (current) use of oral hypoglycemic drugs; Z79.82 Long term (current) use of aspirin; Z79.899 Other long term (current) drug therapy; Z88.7 Allergy status to serum and vaccine; Z86.73 Personal history of transient ischemic attack (TIA), and cerebral infarction without residual deficits; Z87.442 Personal history of urinary calculi; Z87.891 Personal history of nicotine dependence; X30.XXXA Exposure to excessive natural heat, initial encounter; Y93.89 Activity, other specified; Y92.008 Other place in unspecified non-institutional (private) residence as the place of occurrence of the external cause
CPT/HCPCS: 96361; 96366; 96365; 96375; 96372 ×2; J2405; J7799; J7030; J3475 ×2; J1815; J7120; 80048 ×2; 82553; 80053; 82948 ×2; 36415 ×4; 81001; 85025; 82550; 83690; 83735 ×2; 84484; 36416 ×2; 71045; 70470; 94760 ×2; 99285; 93005; G0378

== ENCOUNTER 2019-04-05 17:52 | Emergency (ER) | payer MEDICARE ==
[2019-04-05] MEDS ORDERED: SODIUM CHLORIDE 0.9% (FLUSH) 10 ML SYG IV PRN (18:28)
--- NOTE | 2019-04-05 18:41 | ED.PDOC ---
History of Present Illness - General Chief Complaint: Neuro Symptoms/Deficits Stated Complaint: altered mental status Time Seen by Provider: 04/05/19 18:28 Source: patient, RN notes reviewed, Vital Signs reviewed, RN/MD - Dr. Duran Exam Limitations: other - difficulty obtaining any meaningful history of present illness or review of systems due to patient's confusion. - History of Present Illness Initial Comments: Marita Floyd is a 69-year-old white male who presents from his doctor's office. His doctor called me to discuss the fact that the patient came in for an appointment and seemed altered. Doctor was unable to obtain any real meaningful history. She has no laboratory at her clinic and asked that I go ahead and evaluate this patient. Patient is on Depakote and her concern was that he had overdosed on his medicine. Patient denies any symptoms except for pain in bilateral feet that is burning in nature. All other review of systems are negative. Timing/Duration: unsure Severity: moderate Improving Factors: nothing Worsening Factors: nothing Associated Symptoms: other - burning of his feet. Allergies/Adverse Reactions: Allergies Tetanus Toxoid Allergy (Verified 03/15/19 21:04) Home Medications: Ambulatory Orders Aspirin [Aspirin Childrens] 81 mg PO DAILY 04/15/18 Atorvastatin Calcium 40 mg PO BEDTIME 04/15/18 Divalproex Sodium [Depakote] 500 mg PO BID 04/15/18 Fenofibrate 160 mg PO BEDTIME 04/15/18 Levothyroxine Sodium 75 mcg PO DAILY 04/15/18 Metformin HCl [Metformin Hydrochloride] 1,000 mg PO BID 04/15/18 Metoprolol Succinate [Metoprolol Succinate ER] 100 mg PO DAILY 04/15/18 Niacin [Niacin Tr] 1,000 mg PO BID 04/15/18 Venlafaxine HCl [Venlafaxine HCl ER] 300 mg PO 1500 #0 04/21/18 Fish Oil [place]-3 1000 mg 1,200 tablet PO BID 03/15/19 Melatonin 3 mg PO BEDTIME 03/15/19 Oxybutynin Chloride 5 mg PO TID 03/15/19 Probiotic Product [Probiotic] 1 tab PO BID 03/15/19 Review of Systems - Review of Systems Review of Systems: 04/05/19 18:41 meaningful review of systems was unable to be obtained due to the fact that the patient is confused. Symptoms he complains of is a burning sensation in bilateral feet. Constitutional: States: see HPI Past Medical History (General) - Patient Medical History Hx Seizures: No Hx Stroke: No Hx Asthma: No Hx of COPD: No Hx Congestive Heart Failure: No Hx Pacemaker: No Hx Hypertension: Yes Hx Thyroid Disease: Yes Hx Diabetes: Yes Hx MRSA: No Surgical History: other - Vaccination History Hx Influenza Vaccination: Yes - Social History Hx Tobacco Use: No Hx Alcohol Use: No Hx Substance Use: No Hx Physical Abuse: No Hx Emotional Abuse: No Family Medical History - Family History Father Family History: Unknown Living Status: Hx Family;Other: dad, ALS Mother Living Status: Still Living Hx Family Hypertension: Yes Hx Family Cancer: Yes - lung Physical Exam - Physical Exam Eye Exam: bilateral normal Ears, Nose, Throat: hearing grossly normal, normal ENT inspection, normal pharynx Neck: non-tender, full range of motion, supple Respiratory: chest non-tender, lungs clear, normal breath sounds, no respiratory distress, no accessory muscle use Cardiovascular/Chest: normal peripheral pulses, regular rate, rhythm, no edema, no gallop, no JVD, no murmur Peripheral Pulses: radial,right: 2+, radial,left: 2+ Gastrointestinal/Abdominal: normal bowel sounds, non tender, soft Back Exam: no CVA tenderness, no vertebral tenderness Extremity: normal range of motion, non-tender, normal inspection Neurologic: wound care physician II-XII nml as tested, no motor/sensory deficits, alert, other - patient is oriented to self and time. He is slightly confused with some tangential thought. Skin Exam: normal color, warm/dry Lymphatic: no adenopathy Departure - Departure Clinical Impression: Anxiety, subtherapeutic depakote Bipolar disorder Qualifiers: Active/Remission status: currently active Current bipolar episode type: manic Current episode severity: moderate Qualified Code(s): F31.12 - Bipolar disorder, current episode manic without psychotic features, moderate Time of Disposition: 20:15 Disposition: Discharge to Home or Self Care Condition: Good Departure Forms: ED Discharge - Pt. Copy, Patient Portal Self Enrollment Instructions: Bipolar Disorder (DC) Referrals: Roland Jones MD [Primary Care Provider] - 1-2 Weeks Home Medications: Ambulatory Orders Aspirin [Aspirin Childrens] 81 mg PO DAILY 04/15/18 Atorvastatin Calcium 40 mg PO BEDTIME 04/15/18 Divalproex Sodium [Depakote] 500 mg PO BID 04/15/18 Fenofibrate 160 mg PO BEDTIME 04/15/18 Levothyroxine Sodium 75 mcg PO DAILY 04/15/18 Metformin HCl [Metformin Hydrochloride] 1,000 mg PO BID 04/15/18 Metoprolol Succinate [Metoprolol Succinate ER] 100 mg PO DAILY 04/15/18 Niacin [Niacin Tr] 1,000 mg PO BID 04/15/18 Venlafaxine HCl [Venlafaxine HCl ER] 300 mg PO 1500 #0 04/21/18 Fish Oil [place]-3 1000 mg 1,200 tablet PO BID 03/15/19 Melatonin 3 mg PO BEDTIME 03/15/19 Oxybutynin Chloride 5 mg PO TID 03/15/19 Probiotic Product [Probiotic] 1 tab PO BID 03/15/19 Transfer to Outside Facility - Transfer Information Reason for Transfer: required specialist not available
[2019-04-05 18:45] VITALS: TEMP 97; O2SAT 98
[2019-04-05 20:50] VITALS: BP 186/94
== END 2019-04-05 20:30 | disposition home or self-care (01) ==
LOC: ER 17:52
DX: F31.12 Bipolar disorder, current episode manic without psychotic features, moderate (principal); F41.9 Anxiety disorder, unspecified; R79.89 Other specified abnormal findings of blood chemistry; R41.0 Disorientation, unspecified; M79.671 Pain in right foot; M79.672 Pain in left foot; E11.9 Type 2 diabetes mellitus without complications; E07.9 Disorder of thyroid, unspecified; I10 Essential (primary) hypertension; Z79.899 Other long term (current) drug therapy; Z79.84 Long term (current) use of oral hypoglycemic drugs; Z88.7 Allergy status to serum and vaccine

== ENCOUNTER 2019-05-19 12:36 | Emergency (ER) | payer MEDICARE ==
[2019-05-19] MEDS ORDERED: SODIUM CHLORIDE 0.9% 1000ML 1,000 ML IVS ONE (13:25)
--- NOTE | 2019-05-19 13:27 | RAD ---
EXAM DESCRIPTION: Chest,1 View CLINICAL HISTORY: 69 years Male, medical clearance COMPARISON: 03/15/2019 TECHNIQUE: AP radiograph of the chest was obtained. FINDINGS: Trachea is midline.The cardiomediastinal silhouette is normal in size. The pulmonary vasculature is within normal limits.The lungs are clear with no acute consolidation.No evidence of pleural effusions. IMPRESSION: No acute cardiopulmonary process. Electronically signed by: Sara Vaughan MD 05/19/2019 1:25 PM [facility]
--- NOTE | 2019-05-19 14:35 | ED.PDOC ---
History of Present Illness - General Chief Complaint: Neuro Symptoms/Deficits Stated Complaint: manic, clearance needed for [place] Time Seen by Provider: 05/19/19 12:39 Source: patient, family Exam Limitations: clinical condition - History of Present Illness Initial Comments: the patient is a 69-year-old male presenting to the emergency room secondary to an acute manic episode and has bipolar disorder. Apparently the patient was arrested around the first of this month for DWI. He apparently did not get his medications appropriately while in custody and has since been in a manic state. He has been sleeping very little at night. He has been more impulsive. He has been spending money excessively according to his . She thinks that he has been taking his medications as appropriate but she is not entirely sure. The patient is completely disheveled and smells poorly. He has a hard time sitting still. He is alert and oriented but his speech pattern is rambling and very quiet. Eye contact is very poor. He is cooperative. He does understand that he is in a manic state and does need help. He is amenable to inpatient evaluation to get things under control. His is present to give additional information. He was sent over by his primary care doctor, for medical clearance to be sent to [facility] for inpatient evaluation and tr eatment as per his psychiatrist, Dr. Kahn's instruction. No trauma. He denies drug use. He has obviously had a history of drinking. Timing/Duration: other - 2-3 weeks Severity: moderate Improving Factors: nothing Worsening Factors: nothing Associated Symptoms: denies symptoms Allergies/Adverse Reactions: Allergies Tetanus Toxoid Allergy (Verified 03/15/19 21:04) Home Medications: Ambulatory Orders Aspirin [Aspirin Childrens] 81 mg PO DAILY 04/15/18 Atorvastatin Calcium 40 mg PO BEDTIME 04/15/18 Divalproex Sodium [Depakote] 500 mg PO BID 04/15/18 Fenofibrate 160 mg PO BEDTIME 04/15/18 Levothyroxine Sodium 75 mcg PO DAILY 04/15/18 Metformin HCl [Metformin Hydrochloride] 1,000 mg PO BID 04/15/18 Metoprolol Succinate [Metoprolol Succinate ER] 100 mg PO DAILY 04/15/18 Niacin [Niacin Tr] 1,000 mg PO BID 04/15/18 Venlafaxine HCl [Venlafaxine HCl ER] 300 mg PO 1500 #0 04/21/18 Fish Oil Toney-3 1000 mg 1,200 tablet PO BID 03/15/19 Melatonin 3 mg PO BEDTIME 03/15/19 Oxybutynin Chloride 5 mg PO TID 03/15/19 Probiotic Product [Probiotic] 1 tab PO BID 03/15/19 Review of Systems - Review of Systems Constitutional: States: no symptoms reported EENTM: States: no symptoms reported Respiratory: States: no symptoms reported Cardiology: States: no symptoms reported Gastrointestinal/Abdominal: States: no symptoms reported Genitourinary: States: no symptoms reported Musculoskeletal: States: no symptoms reported Skin: States: no symptoms reported Neurological: States: see HPI Endocrine: States: no symptoms reported All other Systems: No Change from Baseline Past Medical History (General) - Patient Medical History Hx Seizures: No Hx Stroke: No Hx Asthma: No Hx of COPD: No Hx Congestive Heart Failure: No Hx Pacemaker: No Hx Hypertension: Yes Hx Thyroid Disease: Yes Hx Diabetes: Yes Hx MRSA: No - Vaccination History Hx Influenza Vaccination: Yes - Social History Hx Tobacco Use: No Hx Alcohol Use: No Hx Substance Use: No Hx Physical Abuse: No Hx Emotional Abuse: No Family Medical History - Family History Father Family History: Unknown Living Status: Hx Family;Other: dad, ALS Mother Living Status: Still Living Hx Family Hypertension: Yes Hx Family Cancer: Yes - lung Physical Exam - Physical Exam General Appearance: Alert, Unkempt, Other - speech is quick and rambling. It is fairly low volume as well. Eye Exam: bilateral normal - poor eye contact Ears, Nose, Throat: hearing grossly normal, normal pharynx Neck: full range of motion, supple Respiratory: lungs clear, normal breath sounds, no respiratory distress, no accessory muscle use Cardiovascular/Chest: normal peripheral pulses, regular rate, rhythm, no edema Peripheral Pulses: radial,right: 2+, radial,left: 2+, dorsalis pedis,right: 2+, dorsalis pedis,left: 2+ Gastrointestinal/Abdominal: non tender, soft Rectal Exam: deferred Back Exam: no CVA tenderness, no vertebral tenderness Extremity: normal range of motion, non-tender, normal inspection, no pedal edema, normal capillary refill 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 Skin Exam: normal color Comments: Vital Signs - 24 hr 05/19/19 12:37 Temperature 98.3 F Pulse Rate [ 60 left brachial] Respiratory 18 Rate Blood Pressure 142/68 [left brachial] O2 Sat by Pulse 96 Oximetry Progress - Progress Progress: 05/19/19 14:37 the patient is a 69-year-old male presenting in a manic episode. The patient was sent over by his primary care doctor for medical clearance before being sent to [facility] for further psychiatric care and evaluation. The patient did receive 2 mg of oral clonazepam here. Laboratory work and x-ray are reassuring. Patient and his are in agreement with the inpatient evaluation and treatment. He did receive a liter of iv fluids for mild dehydration. - Results/Orders Results/Orders: Laboratory Tests 05/19/19 05/19/19 05/19/19 12:55 12:55 12:55 WBC 8.8 RBC 4.25 L Hgb 12.1 L Hct 36.3 L MCV 85.4 MCH 28.3 MCHC 33.2 RDW 14.5 Plt Count 248 MPV 9.3 Absolute Neuts (auto) 5.70 Absolute Lymphs (auto) 2.00 Absolute Monos (auto) 0.90 H Absolute Eos (auto) 0.10 Absolute Basos (auto) 0.10 Neutrophils % 64.7 Lymphocytes % 22.8 Monocytes % 10.3 H Eosinophils % 1.5 Basophils % 0.7 Sodium 138 Potassium 4.0 Chloride 105 Carbon Dioxide 22 Anion Gap 15.0 BUN 23 H Creatinine 0.86 BUN/Creatinine Ratio 26.7 H Random Glucose 104 Serum Osmolality 279.7 Calcium 9.7 Magnesium 1.8 Total Bilirubin 0.4 AST 22 ALT 18 Alkaline Phosphatase 43 Creatine Kinase 145 CK-MB (CK-2) 4.2 CK-MB (CK-2) % Not Reportable Troponin I < 0.02 Serum Total Protein 7.0 Albumin 3.7 Globulin 3.3 Albumin/Globulin Ratio 1.1 TSH 8.12 H Urine Color Urine Appearance Urine pH Ur Specific [place] Urine Protein Urine Glucose (UA) Urine Ketones Urine Blood Urine Nitrite Urine Bilirubin Urine Urobilinogen Ur Leukocyte Esterase Urine RBC Urine WBC Ur Epithelial Cells Urine Bacteria Urine Opiates Screen Urine Barbiturates Ur Phencyclidine Scrn U Amphetamin/Meth Scrn U Benzodiazepines Scrn U Cocaine Metab Screen U Cannabinoids Screen 05/19/19 05/19/19 13:20 13:30 WBC RBC Hgb Hct MCV MCH MCHC RDW Plt Count MPV Absolute Neuts (auto) Absolute Lymphs (auto) Absolute Monos (auto) Absolute Eos (auto) Absolute Basos (auto) Neutrophils % Lymphocytes % Monocytes % Eosinophils % Basophils % Sodium Potassium Chloride Carbon Dioxide Anion Gap BUN Creatinine BUN/Creatinine Ratio Random Glucose Serum Osmolality Calcium Magnesium Total Bilirubin AST ALT Alkaline Phosphatase Creatine Kinase CK-MB (CK-2) CK-MB (CK-2) % Troponin I Serum Total Protein Albumin Globulin Albumin/Globulin Ratio TSH Urine Color Yellow Urine Appearance Clear Urine pH 7.0 Ur Specific [place] 1.020 Urine Protein Negative Urine Glucose (UA) Negative Urine Ketones Negative Urine Blood Negative Urine Nitrite Negative Urine Bilirubin Negative Urine Urobilinogen 0.2 Ur Leukocyte Esterase Negative Urine RBC 0-1 Urine WBC 1-3 Ur Epithelial Cells 0-1 Urine Bacteria Rare Urine Opiates Screen Negative Urine Barbiturates Negative Ur Phencyclidine Scrn Negative U Amphetamin/Meth Scrn Negative U Benzodiazepines Scrn Negative U Cocaine Metab Screen Negative U Cannabinoids Screen Negative chest x-ray appears benign. Departure - Departure Clinical Impression: Manic episode without psychosis Disposition: Transfer to Hospital Condition: Fair Departure Forms: ED Discharge - Pt. Copy, Patient Portal Self Enrollment Referrals: Roland Jones MD [Primary Care Provider] - 1-2 Weeks Home Medications: Ambulatory Orders Aspirin [Aspirin Childrens] 81 mg PO DAILY 04/15/18 Atorvastatin Calcium 40 mg PO BEDTIME 04/15/18 Divalproex Sodium [Depakote] 500 mg PO BID 04/15/18 Fenofibrate 160 mg PO BEDTIME 04/15/18 Levothyroxine Sodium 75 mcg PO DAILY 04/15/18 Metformin HCl [Metformin Hydrochloride] 1,000 mg PO BID 04/15/18 Metoprolol Succinate [Metoprolol Succinate ER] 100 mg PO DAILY 04/15/18 Niacin [Niacin Tr] 1,000 mg PO BID 04/15/18 Venlafaxine HCl [Venlafaxine HCl ER] 300 mg PO 1500 #0 04/21/18 Fish Oil Toney-3 1000 mg 1,200 tablet PO BID 03/15/19 Melatonin 3 mg PO BEDTIME 03/15/19 Oxybutynin Chloride 5 mg PO TID 03/15/19 Probiotic Product [Probiotic] 1 tab PO BID 03/15/19 Transfer to Outside Facility - Transfer Information Decision to Transfer Date: 05/19/19 Decision to Transfer Time: 14:30 Reason for Transfer: required specialist not available Accepting Provider:: dr rowell Accepting Facility: [facility]
[2019-05-19 17:43] VITALS: BP 108/67; TEMP 98.2; O2SAT 98
== END 2019-05-19 17:20 | disposition short-term general hospital (02) ==
LOC: ER 12:36
DX: F31.10 Bipolar disorder, current episode manic without psychotic features, unspecified (principal); E86.0 Dehydration; E11.9 Type 2 diabetes mellitus without complications; I10 Essential (primary) hypertension; E07.9 Disorder of thyroid, unspecified; Z79.899 Other long term (current) drug therapy; Z79.82 Long term (current) use of aspirin; Z88.7 Allergy status to serum and vaccine
CPT/HCPCS: 36415; 71045; 80053; 80307; 81001; 82550; 82553; 83735; 84443; 84484; 85025; J7030

== ENCOUNTER → 2019-06-10 | Outpatient (CLI) | payer MEDICARE | LOC: LAB.O 10:00 | PROVIDERS: ATTEND Psychiatry & Neurology Psychiatry | DX: F31.2 Bipolar disorder, current episode manic severe with psychotic features (principal); Z79.899 Other long term (current) drug therapy ==

== ENCOUNTER → 2019-07-05 | Outpatient (CLI) | payer MEDICARE | LOC: GMAJ 10:53 | PROVIDERS: ATTEND Family Medicine | DX: E03.9 Hypothyroidism, unspecified (principal); I10 Essential (primary) hypertension; E78.2 Mixed hyperlipidemia; E11.9 Type 2 diabetes mellitus without complications ==

== ENCOUNTER → 2019-07-08 | Outpatient (CLI) | payer MEDICARE | LOC: GMAJ 10:33 | PROVIDERS: ATTEND Family Medicine | DX: F31.9 Bipolar disorder, unspecified (principal); Z79.899 Other long term (current) drug therapy ==

== ENCOUNTER 2019-07-18 21:02 | Emergency (ER) | payer MEDICARE ==
[2019-07-18] MEDS ORDERED: SODIUM CHLORIDE 0.9% 1000ML 1,000 ML IVS ONE (22:19)
[2019-07-18 23:32] VITALS: BP 152/84; O2SAT 98
--- NOTE | 2019-07-18 23:43 | ED.PDOC ---
History of Present Illness - General Chief Complaint: Back Pain or Injury Stated Complaint: upper L leg pain, buttock pain, shoulder/neck pain Time Seen by Provider: 07/18/19 21:04 Source: patient Exam Limitations: no limitations - History of Present Illness Initial Comments: the patient is a 69-year-old male presenting to the emergency room secondary to progressive symptoms of urinary frequency, increasing muscle aches and body aches as well as a mild tremor. The patient has been having a rising TSH last 3-4 months. He reports no adjustment in his thyroid medication. He also is a diabetic but has not been taking one of his blood sugar medications. He does take numerous psychiatric medications. He reports no change in those doses. Timing/Duration: 1 week Severity: moderate Improving Factors: nothing Worsening Factors: nothing Associated Symptoms: malaise Allergies/Adverse Reactions: Allergies Tetanus Toxoid Allergy (Verified 07/18/19 21:17) Home Medications: Ambulatory Orders Atorvastatin Calcium 40 mg PO BEDTIME 04/15/18 Divalproex Sodium [Depakote] 1,000 mg PO QAM 04/15/18 Fenofibrate 160 mg PO DAILY 04/15/18 Levothyroxine Sodium 75 mcg PO AC 04/15/18 Metformin HCl [Metformin Hydrochloride] 1,000 mg PO BID 04/15/18 Metoprolol Succinate [Metoprolol Succinate ER] 100 mg PO DAILY 04/15/18 Glimepiride [Amaryl] 1 mg PO QAM 05/19/19 Venlafaxine HCl [Venlafaxine HCl ER] 300 mg PO QAM 05/19/19 Divalproex Sodium [Depakote Tab] 500 mg PO BEDTIME 07/18/19 [place] Carbonate 300 mg PO BID 07/18/19 Oxybutynin Chloride 5 mg PO TID 07/18/19 Ziprasidone HCl 60 mg PO BEDTIME 07/18/19 Review of Systems - Review of Systems Constitutional: States: malaise EENTM: States: no symptoms reported Respiratory: States: no symptoms reported Cardiology: States: no symptoms reported Gastrointestinal/Abdominal: States: no symptoms reported Genitourinary: States: frequency Musculoskeletal: States: muscle pain, muscle stiffness Skin: States: no symptoms reported Neurological: States: anxiety Endocrine: States: no symptoms reported All other Systems: No Change from Baseline Past Medical History (General) - Patient Medical History Hx Seizures: No Hx Stroke: No Hx Dementia: No Hx Asthma: No Hx of COPD: No Hx Cardiac Disorders: No Hx Congestive Heart Failure: No Hx Pacemaker: No Hx Hypertension: Yes Hx Thyroid Disease: Yes Hx Diabetes: Yes Hx Gastroesophageal Reflux: No Hx Renal Disease: No Hx Cancer: No Hx of HIV: No Hx Hepatitis C: No Hx MRSA: No - Vaccination History Hx Tetanus, Diphtheria Vaccination: No Hx Influenza Vaccination: Yes Hx Pneumococcal Vaccination: Yes - Social History Hx Tobacco Use: No Hx Alcohol Use: No Hx Substance Use: No Hx Physical Abuse: No Hx Emotional Abuse: No Family Medical History - Family History Father Family History: Unknown Living Status: Hx Family;Other: dad, ALS Mother Living Status: Still Living Hx Family Hypertension: Yes Hx Family Cancer: Yes - lung Physical Exam - Physical Exam General Appearance: Alert, Anxious, No apparent distress Ears, Nose, Throat: hearing grossly normal, normal pharynx Neck: full range of motion, supple Respiratory: lungs clear, normal breath sounds, no respiratory distress, no accessory muscle use Cardiovascular/Chest: normal peripheral pulses, regular rate, rhythm, no edema Peripheral Pulses: radial,right: 2+, radial,left: 2+, dorsalis pedis,right: 2+, dorsalis pedis,left: 2+ Gastrointestinal/Abdominal: non tender, soft Rectal Exam: deferred Back Exam: no CVA tenderness, no vertebral tenderness Extremity: normal range of motion, normal inspection, no pedal edema, normal capillary refill, other - mild diffuse muscular tenderness. 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 Source of this is not entirely certain. there are multiple possibilities. It is entirely possible patient may simply have a mild viral infection causing it. Other sources can be the cholesterol medications causing some muscle aches. Additionally the patient does have some mild dehydration and did receive a liter of fluid. Certainly dehydration can cause muscle cramps. His blood sugars have been somewhat out of control. He needs to discuss with his primary care doctor and line out his diabetes medications as it sounds like he has not been particularly compliant recently. no evidence of any urinary tract infection. Frequency is likely due to poorly controlled diabetes. Additionally the dehydration may be contributing to more side effects from his psychiatric medications. Hopefully rehydrating him will protect him from further issues with this. The patient is also having what appears to be worsening of some mild hypothyroidism. Until he follows back up with his primary care doctor later in the week, I recommend that he increase his Synthroid to 150 g daily. we did send out a lithium level on the patient. This needs to be followed up with his primary care doctor later this week as well. I do not really expect it to be high as he is on a fairly low dose, however given the mild dehydration, it may be higher than expected. This could certainly contribute to some aches and tremor as well. ER warnings were given. [email or web address] [email or web address] [id number] - Results/Orders Results/Orders: Laboratory Tests 07/18/19 07/18/19 07/18/19 21:34 21:34 21:34 WBC 9.1 RBC 4.54 L Hgb 12.6 L Hct 38.3 L MCV 84.3 MCH 27.7 MCHC 32.8 L RDW 15.1 H Plt Count 261 MPV 9.6 Absolute Neuts (auto) 6.20 Absolute Lymphs (auto) 2.00 Absolute Monos (auto) 0.60 Absolute Eos (auto) 0.20 Absolute Basos (auto) 0.10 Neutrophils % 68.6 Lymphocytes % 21.6 Monocytes % 6.9 Eosinophils % 2.1 Basophils % 0.8 Sodium 131 L Potassium 5.0 Chloride 98 L Carbon Dioxide 24 Anion Gap 14.0 BUN 21 H Creatinine 0.91 BUN/Creatinine Ratio 23.1 H Random Glucose 174 H Serum Osmolality 269.8 L Calcium 10.2 Magnesium 1.7 L Total Bilirubin 0.6 AST 23 ALT 18 Alkaline Phosphatase 39 L Creatine Kinase 79 CK-MB (CK-2) 3.5 CK-MB (CK-2) % Not Reportable Troponin I < 0.02 Serum Total Protein 7.2 Albumin 4.2 Globulin 3.0 Albumin/Globulin Ratio 1.4 TSH 15.15 H Free T4 Urine Color Urine Appearance Urine pH Ur Specific [place] Urine Protein Urine Glucose (UA) Urine Ketones Urine Blood Urine Nitrite Urine Bilirubin Urine Urobilinogen Ur Leukocyte Esterase Urine RBC Urine WBC Ur Epithelial Cells Amorphous Sediment Urine Bacteria Valproic Acid 07/18/19 07/18/19 21:34 21:35 WBC RBC Hgb Hct MCV MCH MCHC RDW Plt Count MPV Absolute Neuts (auto) Absolute Lymphs (auto) Absolute Monos (auto) Absolute Eos (auto) Absolute Basos (auto) Neutrophils % Lymphocytes % Monocytes % Eosinophils % Basophils % Sodium Potassium Chloride Carbon Dioxide Anion Gap BUN Creatinine BUN/Creatinine Ratio Random Glucose Serum Osmolality Calcium Magnesium Total Bilirubin AST ALT Alkaline Phosphatase Creatine Kinase CK-MB (CK-2) CK-MB (CK-2) % Troponin I Serum Total Protein Albumin Globulin Albumin/Globulin Ratio TSH Free T4 0.82 Urine Color Yellow Urine Appearance Clear Urine pH 7.0 Ur Specific [place] 1.020 Urine Protein Trace Urine Glucose (UA) Negative Urine Ketones Trace Urine Blood Negative Urine Nitrite Negative Urine Bilirubin Negative Urine Urobilinogen 0.2 Ur Leukocyte Esterase Negative Urine RBC 0 Urine WBC 0-1 Ur Epithelial Cells 0 Amorphous Sediment Trace Urine Bacteria Rare Valproic Acid 63.7 Departure - Departure Clinical Impression: Myalgia, Mild dehydration Hypothyroidism Qualifiers: Hypothyroidism type: unspecified Qualified Code(s): E03.9 - Hypothyroidism, unspecified Type 2 diabetes mellitus Qualifiers: Diabetes mellitus director long term care insulin use: without director long term care use Diabetes mellitus complication status: with hyperglycemia Qualified Code(s): E11.65 - Type 2 diabetes mellitus with hyperglycemia Disposition: Discharge to Home or Self Care Condition: Fair Departure Forms: ED Discharge - Pt. Copy, Patient Portal Self Enrollment Instructions: Hypothyroidism (Underactive Thyroid) (DC) Diet: diabetic diet Activity: increase activity as tolerated Referrals: Roland Jones MD [Primary Care Provider] - 1-2 Weeks Home Medications: Ambulatory Orders Atorvastatin Calcium 40 mg PO BEDTIME 04/15/18 Divalproex Sodium [Depakote] 1,000 mg PO QAM 04/15/18 Fenofibrate 160 mg PO DAILY 04/15/18 Levothyroxine Sodium 75 mcg PO AC 04/15/18 Metformin HCl [Metformin Hydrochloride] 1,000 mg PO BID 04/15/18 Metoprolol Succinate [Metoprolol Succinate ER] 100 mg PO DAILY 04/15/18 Glimepiride [Amaryl] 1 mg PO QAM 05/19/19 Venlafaxine HCl [Venlafaxine HCl ER] 300 mg PO QAM 05/19/19 Divalproex Sodium [Depakote Tab] 500 mg PO BEDTIME 07/18/19 [place] Carbonate 300 mg PO BID 07/18/19 Oxybutynin Chloride 5 mg PO TID 07/18/19 Ziprasidone HCl 60 mg PO BEDTIME 07/18/19 Additional Instructions: the patient's a 69-year-old male presenting essentially due to myalgias. Source of this is not entirely certain. there are multiple possibilities. It is entirely possible patient may simply have a mild viral infection causing it. Other sources can be the cholesterol medications causing some muscle aches. He can put these on hold for the next week if he wishes. Additionally the patient does have some mild dehydration and did receive a liter of fluid. Certainly dehydration can cause muscle cramps. His blood sugars have been somewhat out of control. He needs to discuss with his primary care doctor and line out his diabetes medications as it sounds like he has not been particularly compliant recently. no evidence of any urinary tract infection. Frequency is likely due to poorly controlled diabetes. Additionally the dehydration may be contributing to more side effects from his psychiatric medications. Hopefully rehydrating him will protect him from further issues with this. The patient is also having what appears to be worsening of some mild hypothyroidism. Until he follows back up with his primary care doctor later in the week, I recommend that he increase his Synthroid to 150 g daily. we did send out a lithium level on the patient. This needs to be followed up with his primary care doctor later this week as well. I do not really expect it to be high as he is on a fairly low dose, however given the mild dehydration, it may be higher than expected. This could certainly contribute to some aches and tremor as well. ER warnings were given.
[2019-07-18 23:59] VITALS: TEMP 97.4
== END 2019-07-18 23:59 | disposition home or self-care (01) ==
LOC: ER 21:02
DX: E86.0 Dehydration (principal); E03.9 Hypothyroidism, unspecified; E11.65 Type 2 diabetes mellitus with hyperglycemia; M79.10 Myalgia, unspecified site; R35.0 Frequency of micturition; I10 Essential (primary) hypertension; Z88.7 Allergy status to serum and vaccine; Z79.899 Other long term (current) drug therapy; Z79.84 Long term (current) use of oral hypoglycemic drugs
CPT/HCPCS: 36415; 80053; 80164; 80178; 81001; 82550; 82553; 83735; 84439; 84443; 84484; 85025; 87502; J7030

== ENCOUNTER → 2019-07-28 | Outpatient (CLI) | payer MEDICARE | LOC: GMAJ 14:28 | PROVIDERS: ATTEND Family Medicine | DX: Z12.5 Encounter for screening for malignant neoplasm of prostate (principal) ==

== ENCOUNTER → 2019-08-09 | Outpatient (CLI) | payer MEDICARE | LOC: GMAJ 10:44 | PROVIDERS: ATTEND Family Medicine | DX: E03.9 Hypothyroidism, unspecified (principal) ==

== ENCOUNTER → 2019-08-15 | Outpatient (CLI) | payer MEDICARE ==
--- NOTE | 2019-08-16 09:28 | RAD ---
One Radiographs of the Abdomen. Indication: KIDNEY STONES Comparison: January 15, 2019. Impression: Mild constipation. No abnormal calcifications. No acute osseous abnormality. Electronically signed by: Blaise Perkins MD 08/16/2019 9:[address]
== END ==
LOC: RAD 14:12
PROVIDERS: ATTEND Urology
DX: K59.00 Constipation, unspecified (principal)

== ENCOUNTER → 2019-11-01 | Outpatient (CLI) | payer MEDICARE | LOC: GMAJ 12:03 | PROVIDERS: ATTEND Family Medicine | DX: E03.9 Hypothyroidism, unspecified (principal); E78.1 Pure hyperglyceridemia; E11.9 Type 2 diabetes mellitus without complications; I10 Essential (primary) hypertension ==

== ENCOUNTER → 2020-03-29 | Outpatient (CLI) | payer MEDICARE ==
--- NOTE | 2020-03-30 08:41 | MRI ---
Study: MRI of the Left Hip. Indication: OSTEOARTHRITIS LEFT HIP Technique: Multiplanar, multi sequence MRI of the left hip was obtained without intravenous contrast. Comparison: None. Findings: Mixed grade 3 and mild grade 4 chondrosis throughout the left hip joint. Maceration degeneration throughout the left hip labrum. Multilobulated large 30 mm paralabral cyst noted superiorly. Small marginal osteophytes. No acute fracture or osteonecrosis. Tendinosis bilateral gluteus minimus/medius insertions. No tear. Tendinosis bilateral hamstring tendon origins. L5-S1 disc disease noted. Moderate to severe right hip osteoarthritis with labral degeneration and large superior labral cyst formation. Impression: Moderate to severe osteoarthritis bilateral hips with labral degeneration and large paralabral cyst formation bilaterally. No acute fracture or osteonecrosis. Electronically signed by: Blaise Perkins MD 03/30/2020 8:39 AM CDT
== END ==
LOC: MRI 11:31
PROVIDERS: ATTEND Family Medicine
DX: M16.0 Bilateral primary osteoarthritis of hip (principal); M24.852 Other specific joint derangements of left hip, not elsewhere classified

== ENCOUNTER 2020-04-30 05:40 | Day surgery (SDC) | payer MEDICARE ==
[2020-04-30] MEDS ORDERED: LIDOCAINE 1% 10 ML VIAL INJ ONE (07:22)
[2020-04-30] MEDS ORDERED: BETAMETHASONE ACETATE/BETAMETH 6 MG/ML VIAL IM ONE (07:23)
[2020-04-30] MEDS ORDERED: BUPIVACAINE 0.5% 30 ML VIAL INJ ONE (07:23)
[2020-04-30] MEDS ORDERED: DEXAMETHASONE INJ 10 MG/ML VIAL ONE (07:27)
== END 2020-04-30 09:00 | disposition home or self-care (01) ==
LOC: AMB 05:40
PROVIDERS: ATTEND Family Medicine Sports Medicine
DX: M16.0 Bilateral primary osteoarthritis of hip (principal); S73.192D Other sprain of left hip, subsequent encounter; M71.352 Other bursal cyst, left hip; M76.01 Gluteal tendinitis, right hip; E11.9 Type 2 diabetes mellitus without complications; E78.2 Mixed hyperlipidemia; I10 Essential (primary) hypertension; I65.29 Occlusion and stenosis of unspecified carotid artery; M50.30 Other cervical disc degeneration, unspecified cervical region
CPT/HCPCS: 20610; 36416; 76000; 82948; J1100

== ENCOUNTER 2020-06-01 09:00 | Day surgery (SDC) | payer MEDICARE ==
[~2020-06-01 09:00] MED LIST: LACTATED RINGERS 1,000 ML ONE; LIDOCAINE 1% 10 ML VIAL INJ ONE; PROPOFOL 200 MG/20 ML VIAL IV ONE
--- NOTE | 2020-06-01 11:15 | OP ---
DATE OF PROCEDURE: 06/01/20 PREOPERATIVE DIAGNOSIS: 1. History of colonic polyps. POSTOPERATIVE DIAGNOSIS: 1. Normal colon. PROCEDURE: 1. Complete colonoscopy. SURGEON: Roland Dodd MD ANESTHESIA: General. FINDINGS: Normal mucosal surfaces, adequate prep, no evidence of polyps. COMPLICATIONS: None. ESTIMATED BLOOD LOSS: None. PLAN: Discharge. INDICATION: This is a 70-year-old male with a history of colonic polyp in the past, benign. However, it has been over 10 years since he has had a followup. He had an adequate prep per the patient. PROCEDURE: The patient was brought to the Operative Suite. IV general anesthesia was induced in the lateral position. Digital rectal exam was normal. The colonoscope was inserted and passed with some looping. We had to put the patient on his back. Ultimately, we did get the scope completed. We got to the cecum as evidenced by the ileocecal valve and appendiceal orifice. Upon withdrawal, the mucosal surfaces appeared normal. There were no polyps seen and no significant diverticulosis. The patient tolerated the procedure and was awakened and taken to Recovery to be discharged. #[id number] cc: Roland Jones MD [facility]
[2020-06-01 11:34] VITALS: BP 138/65; TEMP 99; O2SAT 99
== END 2020-06-01 11:38 | disposition home or self-care (01) ==
LOC: AMB 09:00
PROVIDERS: ATTEND Surgery
DX: Z12.11 Encounter for screening for malignant neoplasm of colon (principal); I10 Essential (primary) hypertension; E11.9 Type 2 diabetes mellitus without complications; M19.90 Unspecified osteoarthritis, unspecified site; E78.00 Pure hypercholesterolemia, unspecified; E03.9 Hypothyroidism, unspecified; K21.9 Gastro-esophageal reflux disease without esophagitis; Z86.010 Personal history of colon polyps; Z87.891 Personal history of nicotine dependence; Z86.73 Personal history of transient ischemic attack (TIA), and cerebral infarction without residual deficits; Z79.82 Long term (current) use of aspirin; Z79.84 Long term (current) use of oral hypoglycemic drugs; Z79.899 Other long term (current) drug therapy
CPT/HCPCS: 00812; 36416; 82948; G0105; J3490; J7120

== ENCOUNTER → 2020-06-18 | Outpatient (CLI) | payer MEDICARE ==
--- NOTE | 2020-06-18 16:53 | RAD ---
EXAM DESCRIPTION: KUB CLINICAL HISTORY: RENAL STONES COMPARISON: August 15, 2019. FINDINGS: Single AP supine view of the abdomen shows a nonspecific, nonobstructive bowel gas pattern. Increased volume of stool throughout the colon suggests constipation or obstipation. No abnormal consultation is seen in the expected location of the kidneys or ureters. Kidneys are partly secured by overlying bowel gas. IMPRESSION: Constipation No abnormal calcifications. Electronically signed by: Lenin Bernstein MD 06/18/2020 4:52 PM [employer]
== END ==
LOC: RAD 12:58
PROVIDERS: ATTEND Urology
DX: K59.00 Constipation, unspecified (principal); N28.9 Disorder of kidney and ureter, unspecified